=== PATIENT | female | born 1930 | race Caucasian/White ===

== ENCOUNTER 2020-01-18 03:01 | Inpatient (IN) ==
[2020-01-18 03:41] LABS: Basophils # (auto) 0.06 K/uL (0-0.2); Basophils % (auto) 0.6 %; Eosinophils # (auto) 0.51 K/uL (0-0.5); Eosinophils % (auto) 5.2 %; Hematocrit (blood only) 44.6 % (37-47); Hemoglobin 14.6 g/dL (12.0-16.0); Immature Granulocytes # (auto) 0.02 K/uL (0.00-0.02); Immature Granulocytes % (auto) 0.2 %; Lymphocytes # (auto) 2.99 K/uL (1.2-3.4); Lymphocytes % (auto) 30.4 %; Mean Corpuscular Hemoglobin 30.7 pg (25-34); Mean Corpuscular Hgb Conc 32.7 g/dL (32-36); Mean Corpuscular Volume 93.9 fL (80-100); Mean Platelet Volume 10.2 fL (7.4-10.4); Monocytes # (auto) 0.69 K/uL (0.11-0.59); Neutrophils # (auto) 5.58 K/uL (1.4-6.5); Neutrophils % (auto) 56.6 %; Platelet Count 291 K/uL (130-400); RDW Coefficient of Variation 14.1 % (11.5-14.5); RDW Standard Deviation 48.5 fL (36.4-46.3); Red Blood Count 4.75 M/uL (4.2-5.4); White Blood Count 9.85 K/uL (4.8-10.8)
[2020-01-18 03:48] LABS: Partial Thromboplastin Ratio 0.9; Partial Thromboplastin Time 24.8 Seconds (21.0-31.0); Prothrombin Time 9.9 Seconds (9.0-12.0)
[2020-01-18 03:59] LABS: BUN Creatinine Ratio 34.3 (10-20); Blood Urea Nitrogen 26 mg/dl (7-18); Calcium 9.2 mg/dl (8.5-10.1); Carbon Dioxide 29 mmol/L (21-32); Chloride 108 mmol/L (98-107); Creatinine Clr Calc Pharmacy 36.8 ml/min; Est GFR (African American) 81.2; Glucose 128 mg/dl (70-99); Magnesium 1.9 mg/dl (1.8-2.4); Potassium 4.2 mmol/L (3.5-5.1); Sodium 142 mmol/L (136-145)
[2020-01-18 04:04] LABS: Creatine Kinase 62 U/L (26-192); Troponin I < 0.015 ng/ml (0-0.045)
[2020-01-18 04:05] LABS: Appearance Urine Clear (Clear); Bilirubin Urine Negative (Negative); Blood Urine Negative (Negative); Color Urine Yellow; Glucose Urine UA Negative (Negative); Ketones Urine Negative (Negative); Leukocyte Esterase Urine Negative (Negative); Nitrite Urine Negative (Negative); Protein Urine Negative (Negative); Specific Gravity Urine 1.027 (1.000-1.030); Urobilinogen Urine Negative (Negative)
[2020-01-18] MEDS ORDERED: fentaNYL citrate 100 MCG/2 ML VIAL IV STA (04:44)
--- NOTE | 2020-01-18 06:36 | CT Scan Report ---
CT head/brain wo con CLINICAL HISTORY: fall, head injury, AMS COMPARISON STUDY: 05/11/2013 TECHNIQUE: Axial CT of the brain is performed from the vertex to the skull base. IV contrast was not administered for this examination. A dose lowering technique was utilized adhering to the principles of ALARA. CT DOSE: 729.78 mGycm FINDINGS: No intra or extra-axial mass lesions are visualized. There is no CT evidence of acute cortical infarc tion. There is no evidence of midline shift. There is no acute hemorrhage. There are patchy white matter hypodensities likely on a small vessel basis. There is no evidence of pathologic ventricular dilatation. There is opacification of the left maxillary sinus. There are fractures of the left maxillary and eth moid sinuses. There is a fracture the lateral wall left orbit. There is left periorbital soft tissue swelling. IMPRESSION: 1. Multiple left-sided facial fractures 2. No acute intracranial findings. ACT 112: Negative or not required by law. Electronically signed by: Morro Gonzalez M.D. 01/18/2020 6:35 AM
--- NOTE | 2020-01-18 06:43 | CT Scan Report ---
CT cervical spine wo con CT DOSE: 444.07 mGycm HISTORY: Trauma. Pain. fall, head injury TECHNIQUE: Multiaxial CT images of the cervical spine were performed and reformatted in the sagittal and coronal plane without the use of contrast. A dose lowering technique was utilized adhering to th e principles of ALARA. COMPARISON: None. FINDINGS: No fractures. No subluxation. Prevertebral soft tissues and the C1-C2 interval are intact. No pneumothorax. Considerable degenerative disc change. Osteopenia. IMPRESSION: No fractures within the cervical spine. Degenerative change. Osteopenia. ACT 112: Negative or not required by law. The above report was generated using voice recognition software. It may contain grammatical, syntax or spelling errors. Electronically signed by: Rashad Suarez M.D. 01/18/2020 6:41 AM
--- NOTE | 2020-01-18 06:45 | XRay Report ---
XR chest 1V portable CLINICAL HISTORY: Trauma. Change in mental status. COMPARISON STUDY: 01/07/2020 FINDINGS: The cardiac and mediastinal contours remain stable. There is no failure. There is no focal pulmonary consolidation. There are minor chronic interstitial changes of the lung bases. There is no pneumothorax.[ IMPRESSION: No active disease in the chest. ACT 112: Negative or not required by law. Electronically signed by: Morro Gonzalez M.D. 01/18/2020 6:44 AM
--- NOTE | 2020-01-18 06:46 | XRay Report ---
XR shoulder LT min 2V routine CLINICAL HISTORY: Left shoulder pain status post trauma COMPARISON: None. DISCUSSION: The bones are osteopenic. No acute fractures or dislocations are visualized. There are mi ld degenerative changes. There are subchondral cysts in the humeral head. IMPRESSION: No acute fractures or dislocations identified. ACT 112: Negative or not required by law. Electronically signed by: Morro Gonzalez M.D. 01/18/2020 6:45 AM
--- NOTE | 2020-01-18 06:49 | CT Scan Report ---
CT facial bones wo con CT DOSE: 1028.74 mGycm HISTORY: Trauma fall, head/nose injury TECHNIQUE: Multiaxial CT images of the maxillofacial region were performed and reformatted in the cor onal plane without the use of contrast. A dose lowering technique was utilized adhering to the princ iples of ANICETO. COMPARISON: None. FINDINGS: Complex fracture left maxillofacial region. Fracture lateral wall left orbit. Cortical frac ture inferior wall left orbit with inferior displacement of the left inferior orbital margin. There i s no evidence for muscular entrapment. Estimated inferior displacement is 3.5 mm at maximum. There is a fracture of the lateral as well as medial raymundo of the left maxillary sinus. There are josephine matous and/or hypertrophic changes of the left nasal turbinates. There is moderate nasal septal displ acement to the right. There is a fracture of the left lateral and left anterior nasal bone region. There is a slightly depressed fracture anterior aspect of the left maxillary sinus with a maximum pos terior displacement of 3 mm. IMPRESSION: 1. Complex fracture left facial region 2. Fractures of the anterior medial and lateral left maxillary sinus wall. 3. Inferior displacement of the fracture of the left inferior orbital margin. Nondisplaced fracture l ateral wall left orbit. 4. Fracture of the anterior left maxillary sinus wall with moderate posterior displacement of 3 mm. 5. Fracture nasal bones. ACT 112: Negative or not required by law. The above report was generated using voice recognition software. It may contain grammatical, syntax or spelling errors. Electronically signed by: Rashad Suarez M.D. 01/18/2020 6:48 AM
--- NOTE | 2020-01-18 07:29 | Emergency Department Note ---
Entered by Ronen Powell acting as a scribe for Miah Ward MD ED Provider Note Name: RAYMOND CAN Age: 89 Arrives Via: Ambulance Informant: EMS CC: Fall with left sided facial pain HPI: 89F arrives for evaluation of a constant left sided facial pain following a fall prior to arrival. EMS reports that the son heard the patient screaming but by the time he found her the blood from the fall was dried. The report the son did not know what time the patient fell. The patient is covered in dried blood. EMS states no medications prior to arrival. The HPI and ROS limited secondary to patients dementia. ROS: The HPI and ROS limited secondary to patients dementia. Past Medical History:Dementia, TIA, IBS, HTN, Hypothyroid Past Surgical History:Unknown Family History:Unknown Social History:Lives with son, no etoh, no drugs, no tobacco Home Medications:See Below Allergies:oxycodone, tramadol Vitals:Blood Pressure 145/70, Pulse 66, Resp 19, T 36.5C, O2 96% on RA Physical Exam: GENERAL: Patient is elderly and demented, in moderate distress. EYES: No scleral icterus, unremarkable pupils. ENT: Mucous membranes moist, no nasal congestion. HEAD: Much of hair and right side of face covered in dried blood. Large hematoma of the left eyebrow, with dried blood. Tenderness over left eyebrow. Right deviation of the nose with tenderness to palpation. Dried blood in each nares. NECK: No masses appreciated, nomeningismus, trachea is midline. RESPIRATORY: No dyspnea. Clear to auscultation and equal bilaterally. No wheeze, no rhonchi. CARDIOVASCULAR: Regular rate and rhythm.No murmurs, rubs, gallops appreciated. GASTROINTESTINAL: Abdomen soft, non-tender, no peritonitis.Bowel sounds positive.No masses appreciated. BACK: No midline tenderness, no CVA tenderness EXTREMITIES: Normal motion all extremities, no cyanosis, no edema. NEUROLOGIC: Alert and oriented, no acute motor or sensory deficits, no focal weakness, cranial nerves grossly intact. SKIN: No rash, no jaundice, no diaphoresis. GCS 14 ED Course: Prior Medical Record, Triage/Nursing Notes, Medications, Allergies reviewed by Me Vital Signs: reviewed and remarkable for wnl Labs:Reviewed and remarkable for no significant abnormalities Interventions: saline lock, fentanyl 25mcg IV Laceration Repair Procedure: Location: Left lateral eyebrow Total length: 2cm Complexity: simple Verbal consent was obtained after the risks and benefits were explained, including but not limited to bleeding, scarring, infection, pain, and bone/joint/nerve damage. At this time, the risks of the procedure are less than the risks of NOT performing the procedure. A time out was taken and the correct patient and site identified. The skin was prepped with betadine. Examination revealed no injury to deep structures such as tendons, bone, or significant blood vessels. Debridement was not performed. The wound edges were approximated using Dermabond. Hemostasis and excellent approximation was achieved. Detailed wound care instructions and signs and symptoms of infection reviewed with the son. No complications and the patient tolerated the procedure well. Imaging:[facility] Radiologist interpretation reviewed by me: CT head, face, cervical. Complex left orbital/maxillary fracture with left nasal fracture. Retro hematoma left orbit. Reassessments/Times: 0305: Past medical records reviewed. The patient was evaluated in room A11B. A complete history and physical exam was performed. 0430: I spoke with Dr. Ever Nina Hospitalist. He will evaluate for further management. Blood pressure:Elevated - Referred to hospitalist Disposition:Hospitalization Differentials:Differential includes acute coronary syndrome, myocardial infarction, CVA, TIA, anemia, infection, pneumonia, UTI, pyelonephritis, poor nutrition, dehydration, electrolyte disturbance,hypoglycemia. Medical Decision Makin yr old female with fall at home and likely laying on ground for an hour prior to calling out for son. Unclear why not calling though suspect LOC. Large hematome left periorbital but on exam full ROM left eye without pain appreciated and no proptosis at this time. Lac repaired over left eye brow with dermabond. Uncomfortable for which fentanyl used. After removal of cervical collar with negative ct she has no further pain/complaints. Cxr/shoulder xray unremarkable. Reviewed with OMFS and Optho who agree without other findings hospitalization here reasonable. Hospitalist in to evaluate further and we discussed they will order abx for nasal/sinus fracture. She does not have evidence acs, infection. Seems unlikely PE and without neuro deficits I do not feel this is stroke. Impression: Closed head Injury Closed Fracture of left orbit Fracture of maxillary Sinus Laceration of Eyebrow, Left Fall Ambulatory Dysfunction The scribe's documentation has been prepared under my direction and personally reviewed by me in its entirety. I confirm that the note above accurately reflects all work, treatment, procedures, and medical decision making performed by me. Miah Ward MD Impression & Plan CHI (closed head injury), Closed fracture of left orbit, Fracture of maxillary sinus, Laceration of eyebrow, left, Fall, Ambulatory dysfunction Past Med/Surg History Medical History Anxiety Xsxhxfe-Sadsq-Ndsir atrophy Dementia Depression Dermatitis Hypertension Hypothyroid Irritable bowel syndrome TIA (transient ischemic attack) several years ago Family History Other No pertinent family history in first degree relatives Social History Feels Safe at Home: Yes Smoking Status: Never smoker Results & Data Vital Signs Vital Signs - 24 hr 01/18/20 02:54 01/18/20 04:54 01/18/20 06:00 Temperature 36.9 C Temperature Source Oral Pulse Rate 75 Pulse Rate [Apical] 71 62 Respiratory Rate 18 18 18 Respiratory Effort / Characteristics Non-Labored Non-Labored Respiratory Depth Normal Normal Respiratory Pattern Regular Blood Pressure 181/108 H Blood Pressure [Right Arm] 157/109 H 122/58 L Blood Pressure Mean 132 Blood Pressure Mean [Right Arm] 125 79 Blood Pressure Position Lying Blood Pressure Position [Right Arm] Lying Pulse Oximetry 98 97 94 Oxygen Delivery Method Room Air Room Air Room Air Sepsis Recent Fever Within 48 Hours No Sepsis New/Unexplained Change in Mental Status No Sepsis Action Taken by Nursing No Action Required Home Medications Current Medication List: was personally reviewed by me Laboratory Data Attestation: I reviewed the patient's lab results. Result diagrams: 01/18/20 02:41 01/18/20 02:41 Lab Results 01/18/20 01/18/20 01/18/20 Range/Units 02:41 02:41 02:41 WBC 9.85 (4.8-10.8) K/uL RBC 4.75 (4.2-5.4) M/uL Hgb 14.6 (12.0-16.0) g/dL Hct 44.6 (37-47) % MCV 93.9 (80-100) fL MCH 30.7 (25-34) pg MCHC 32.7 (32-36) g/dL RDW Std Deviation 48.5 H (36.4-46.3) fL RDW Coeff of Gerardo 14.1 (11.5-14.5) % Plt Count 291 (130-400) K/uL MPV 10.2 (7.4-10.4) fL Immature Gran % (Auto) 0.2 % Neut % (Auto) 56.6 % Lymph % (Auto) 30.4 % [place]ardo % (Auto) 7.0 % Eos % (Auto) 5.2 % Baso % (Auto) 0.6 % Immature Gran # (Auto) 0.02 (0.00-0.02) K/uL Neut # (Auto) 5.58 (1.4-6.5) K/uL Lymph # (Auto) 2.99 (1.2-3.4) K/uL Fajardo # (Auto) 0.69 H (0.11-0.59) K/uL Eos # (Auto) 0.51 H (0-0.5) K/uL Baso # (Auto) 0.06 (0-0.2) K/uL PT 9.9 (9.0-12.0) Seconds INR 1.0 (0.9-1.1) APTT 24.8 (21.0-31.0) Seconds PTT Ratio 0.9 Sodium 142 (136-145) mmol/L Potassium 4.2 (3.5-5.1) mmol/L Chloride 108 H (98-107) mmol/L Carbon Dioxide 29 (21-32) mmol/L Anion Gap 5.0 (3-11) BUN 26 H (7-18) mg/dl Creatinine 0.76 (0.6-1.2) mg/dl Est Cr Clr Drug Dosing 36.8 ml/min Est GFR ( Amer) 81.2 Est GFR (Non-Af Amer) 70.0 BUN/Creatinine Ratio 34.3 H (10-20) Glucose 128 H (70-99) mg/dl Calcium 9.2 (8.5-10.1) mg/dl Magnesium 1.9 (1.8-2.4) mg/dl Total Creatine Kinase 62 (26-192) U/L Troponin I < 0.015 (0-0.045) ng/ml Urine Color Urine Appearance (Clear) Urine pH (4.5-7.5) Ur Specific [place] (1.000-1.030) Urine Protein (Negative) Urine Glucose (UA) (Negative) Urine Ketones (Negative) Urine Blood (Negative) Urine Nitrite (Negative) Urine Bilirubin (Negative) Urine Urobilinogen (Negative) Ur Leukocyte Esterase (Negative) 01/18/20 Range/Units 03:23 WBC (4.8-10.8) K/uL RBC (4.2-5.4) M/uL Hgb (12.0-16.0) g/dL Hct (37-47) % MCV (80-100) fL MCH (25-34) pg MCHC (32-36) g/dL RDW Std Deviation (36.4-46.3) fL RDW Coeff of Gerardo (11.5-14.5) % Plt Count (130-400) K/uL MPV (7.4-10.4) fL Immature Gran % (Auto) % Neut % (Auto) % Lymph % (Auto) % [place] % (Auto) % Eos % (Auto) % Baso % (Auto) % Immature Gran # (Auto) (0.00-0.02) K/uL Neut # (Auto) (1.4-6.5) K/uL Lymph # (Auto) (1.2-3.4) K/uL [place] # (Auto) (0.11-0.59) K/uL Eos # (Auto) (0-0.5) K/uL Baso # (Auto) (0-0.2) K/uL PT (9.0-12.0) Seconds INR (0.9-1.1) APTT (21.0-31.0) Seconds PTT Ratio Sodium (136-145) mmol/L Potassium (3.5-5.1) mmol/L Chloride (98-107) mmol/L Carbon Dioxide (21-32) mmol/L Anion Gap (3-11) BUN (7-18) mg/dl Creatinine (0.6-1.2) mg/dl Est Cr Clr Drug Dosing ml/min Est GFR ( Amer) Est GFR (Non-Af Amer) BUN/Creatinine Ratio (10-20) Glucose (70-99) mg/dl Calcium (8.5-10.1) mg/dl Magnesium (1.8-2.4) mg/dl Total Creatine Kinase (26-192) U/L Troponin I (0-0.045) ng/ml Urine Color Yellow Urine Appearance Clear (Clear) Urine pH 5.0 (4.5-7.5) Ur Specific [place] 1.027 (1.000-1.030) Urine Protein Negative (Negative) Urine Glucose (UA) Negative (Negative) Urine Ketones Negative (Negative) Urine Blood Negative (Negative) Urine Nitrite Negative (Negative) Urine Bilirubin Negative (Negative) Urine Urobilinogen Negative (Negative) Ur Leukocyte Esterase Negative (Negative) Administered Medications Discontinued Medications Fentanyl Citrate (Fentanyl Citrate) 25 mcg IV NOW STA Stop: 01/18/20 04:45 Last Admin: 01/18/20 04:49 Dose: 25 mcg Documented by: [id number] Blood Pressure Blood Pressure Findings: Elevated blood pressure Blood Pressure Disposition: further management by hospitalist Discharge Plan Visit Data *Final* Discharge Date/Time: 01/18/20 07:04 Chief Complaint: Fall Stated Complaint: Fall; head injury ED Provider: Miah Ward Discharge Problem: CHI (closed head injury), Closed fracture of left orbit, Fracture of maxillary sinus, Laceration of eyebrow, left, Fall, Ambulatory dysfunction Patient Disposition: Admitted As Inpatient Discharge Instructions Interventions: ED Discharge Assessment Last Done: 01/18/20 07:04 Discharge Problem: CHI (closed head injury) Qualifiers: Encounter type: initial encounter Qualified Code(s): S09.90XA - Unspecified injury of head, initial encounter Closed fracture of left orbit Qualifiers: Encounter type: initial encounter Qualified Code(s): S02.85XA - Fracture of orbit, unspecified, initial encounter for closed fracture Fracture of maxillary sinus Qualifiers: Encounter type: initial encounter Fracture type: closed Qualified Code(s): S02.401A - Maxillary fracture, unspecified side, initial encounter for closed fracture Laceration of eyebrow, left Qualifiers: Encounter type: initial encounter Qualified Code(s): S01.112A - Laceration without foreign body of left eyelid and periocular area, initial encounter Fall Qualifiers: Encounter type: initial encounter Qualified Code(s): W19.XXXA - Unspecified fall, initial encounter The scribe's documentation has been prepared under my direction and personally reviewed by me in its entirety. I confirm that the note above accurately reflects all work, treatment, procedures, and medical decision making performed by me.
[2020-01-18] MEDS ORDERED: PIPERACILL/TAZOBAC CONSULT ACTIVE PRN (07:55)
[2020-01-18] MEDS ORDERED: NITROGLYCERIN SL 0.4 MG/TAB TAB SL PRN (07:55)
[2020-01-18] MEDS ORDERED: ONDANSETRON INJ 2 MG/ML 2 ML VIAL IV PRN (07:55)
[2020-01-18] MEDS ORDERED: POLYETHYLENE (MIRALAX) 17 GM PACK PO PRN (07:55)
--- NOTE | 2020-01-18 07:55 | History and Physical Report ---
DATE OF ADMISSION: 01/18/2020 CHIEF COMPLAINT: Status post fall. HISTORY OF PRESENT ILLNESS: This is 89-year-old female with past medical history significant for hyperlipidemia, hypothyroidism, impaired fasting glucose, hypertension, irritable bowel syndrome, degeneration of cervical and lumbosacral disk osteoporosis, coronary artery disease, history of seizures, migraine, history of uterine cancer, generalized anxiety disorder, insomnia, who is wheelchair bound, can transfer herself to the wheelchair, has mild dementia, lives with her son, fell around 2 a.m. As per the son, patient is supposed to use a wheelchair, patient gets confused whenever she gets up in the night and seemed didn't used her wheel chair. She fell down close to the bathroom and he called 911. This patient was brought in here. Currently, patient received fentanyl and she is drowsy, not able to give much history from the patient. Imaging studies showed CT head multiple left sided facial fractures. No acute intracranial findings and Facial CT preliminary report shows acute mildly displaced fracture of the anterior and posterior raymundo of the left maxillary sinus with blood filling the left maxillary sinus. Acute nondisplaced fracture seen on the left nasal bone, left preseptal periorbital hematoma extending to the left supraorbital and left frontal scalp regions. Currently, the patient is drowsy and hemodynamically stable, but when asked denies any chest pain, denies any abdominal pain, denies any nausea. She has pain in the left eye region and she is very drowsy and does not answer other questions. As per the son, the patient was apparently doing okay until this happened. No recent fever or chills. No cough. Eating okay. She is on regular diet. She recently on 01/07/2020 she was in the ER for food stuck in the esophagus. She was status post EGD at that time and at the time of the EGD it showed the food had already gone into the stomach and the patient was discharged on Protonix for 3 months and there is plan for repeat endoscopy in 2 months to check for healing and as EGD showed reflux esophagitis. ALLERGIES: ENVIRONMENTAL, PERCOCET, TRAMADOL. PAST MEDICAL HISTORY: As mentioned above. PAST SURGICAL HISTORY: Colonoscopy, EGDs, laparoscopic vaginal hysterectomy with removal of oviducts, cataract surgery bilaterally, tonsillectomy, adenoidectomy, repair of the vulvar lesion. MEDICATIONS: The patient is on aspirin 81 mg p.o. a.m., citalopram 20 mg p.o. at bedtime, Keppra 1250 mg a.m. and at bedtime, levothyroxine 50 mcg daily, lisinopril 5 mg a.m., Ativan 1 mg p.o. at bedtime, Toprol-XL 100 mg p.o. a.m. FAMILY HISTORY: Significant for mother who has breast cancer, of CHF and has CVA. Father had VT at age of 51. Son has heart disorder, blood clots. Daughter has DVT and another son has brain tumor. SOCIAL HISTORY: , currently lives with her son. No smoking, no alcohol, no drug use. REVIEW OF SYMPTOMS: Unobtainable from the patient at this time because the patient is very drowsy. PHYSICAL EXAMINATION: VITAL SIGNS: Temperature 36.9, pulse 62, respiratory rate 18, blood pressure 102/58, oxygen 94% on room air. HEENT: Some bruising above the left brow, could not exam the eyes as the patient has difficulty to open eyes and she has some hematoma on the left orbital region. NECK: No neck masses. Supple. CARDIOVASCULAR: S1, S2 heard, regular rate and rhythm, no murmur, no gallop. RESPIRATORY SYSTEM: Normal AP diameter. No accessory muscle use. No wheezing, no crackles. ABDOMEN: Soft, bowel sounds present. No distention. CENTRAL NERVOUS SYSTEM: Drowsy and only oriented to name, does not respond to any commands. EXTREMITIES: No edema, no erythema. LABORATORY DATA: WBC 9.8, hemoglobin 14.6, hematocrit 44.6, platelets 291. PT 10.9, INR 1, APTT 24.8. Sodium 142, potassium 4.2, chloride 108, bicarbonate 29, BUN 26, creatinine 0.7, serum glucose 128, calcium 9.2, magnesium 1.9. Troponin I less than 0.015. Urinalysis negative. Cervical spine CT, no fractures. Degenerative changes. Chest x-ray, no active disease in the chest. CT of the head, multiple left sided facial fractures. No acute intracranial hemorrhage. FINDINGS Facial CT preliminary report left maxillary acute mildly displaced fracture of the anterior and posterior raymundo of the left maxillary sinus, with blood filling in the left maxillary sinus. Acute nondisplaced fracture involving the left nasal bone, left preseptal periorbital hematoma extended to left supraorbital and left frontal scalp region. EKG: Normal sinus rhythm, rate of 74, nonspecific ST-T wave abnormality. Shoulder x-ray is pending. ASSESSMENT AND PLAN: This is an 89-year-old female who lives with her son, wheelchair bound, and transfers herself to the wheelchair, was found close to the bathroom at around 2 a.m. today at night and was not using the wheelchair and imaging studies shows left maxillary sinus fracture and also left periorbital hematoma. 1. Fall, left maxillary sinus fracture and left periorbital hematoma. ER physician talked to the ENT and also Ophthalmology and was advised for observation. Will Observe the patient in med/surg tele. IV fluids. Consult ENT and Ophthalmology. PT and OT and Social Service to help with discharge planning. Pain control. We will hold aspirin for now. 2. History of depression and anxiety. Continue citalopram and Ativan. 3. Hypothyroidism. Continue Synthroid. 4. Hypertension. Continue Toprol-XL and lisinopril. 5. Seizures. Continue Keppra. 6. History of prediabetes. We will follow the blood sugars, diabetic diet. 7. History of recent food impaction in the esophagus. She was in the ER on 01/07/2020 and EGD was done, food had already gone into the stomach, showed reflux esophagitis was started on Protonix and plan for repeat EGD in 2 months.Will consult speech therapy. 8. Deep venous thrombosis prophylaxis, sequential compression devices for now. 9. Disposition: Observe in med/surg tele. PT and OT prior to discharge. Social Service to help with discharge planning. Code status: Full code as per my discussion with the son. MTDD
[2020-01-18] MEDS ORDERED: PIPERACILLIN/TAZOBACTAM 3.375 GM in DEXTROSE 5% 100 ML IV ONE (08:15)
[2020-01-18] MEDS: SODIUM CHLORIDE 0.9% 1000ML 1,000 ML IV SCH ×2 (08:39→17:41)
--- NOTE | 2020-01-18 10:27 | Electrocardiogram Report ---
Test Reason : Blood Pressure : / mmHG Vent. Rate : 074 BPM Atrial Rate : 074 BPM P-R Int : 126 ms QRS Dur : 074 ms QT Int : 400 ms P-R-T Axes : 053 -19 059 degrees QTc Int : 444 ms Poor data quality, interpretation may be adversely affected Normal sinus rhythm Nonspecific ST and T wave abnormality Abnormal ECG When compared with ECG of 07-JAN-2020 21:23, Nonspecific T wave abnormality now evident in Inferior leads Confirmed by Harish Beltran ([id number]) on 01/18/2020 10:26:36 AM Referred By: REFERRED SELF Confirmed By:Dex Beltran
[2020-01-18] MEDS: lisinopriL 5 MG TAB PO SCH (10:45)
[2020-01-18] MEDS: levETIRAcetam 250 MG TAB PO SCH ×2 (10:45→19:26)
[2020-01-18] MEDS: PANTOprazole 40 MG TAB PO SCH (10:46)
[2020-01-18] MEDS: METOPROLOL SUCC 50MG EXT REL TAB PO SCH (10:46)
[2020-01-18] MEDS: LEVOTHYROXINE SODIUM 50 MCG TABLET PO SCH (10:47)
[2020-01-18] MEDS: ACETAMINOPHEN 325 MG TAB PO PRN (12:48)
--- NOTE | 2020-01-18 12:55 | Hospitalist Progress Note ---
Date of Service January 18, 2020 and January 19, 2020 Assessment & Plan (1) Closed fracture of left orbit: Status post mechanical fall CT of the face did not show inferior displacement of the fracture of the left inferior orbital margin and nondisplaced fracture lateral wall of left orbit Has periorbital ecchymosis and laceration over left upper area No visual abnormality, no subconjunctival hemorrhage Eye movement is minimally painful This was discussed with the training manager and was advised that there is no imminent requirement for any ophthalmologic evaluation Periorbital bruising is much better and there is no visual impairment on examination If there is any problem she will need to see an training manager down the line (2) Fracture of maxillary sinus: Fracture of the neck left maxillary and associated nasal bones noted following the fall Has significant pain there and swelling Orofacial surgery has been consulted and awaiting evaluation Appreciate orofacial surgery input and recommendation Conservative management (3) Fall: Likely mechanical secondary to ambulatory dysfunction We will get PT and OT evaluation-PT OT recommended rehab Awaiting placement (4) Laceration of eyebrow, left: As above Has been getting better (5) Ambulatory dysfunction: Multifactorial osteoarthritis, deteriorating general health and is complicated by dementia PT and OT evaluation before discharge As before (6) Hypertension: Remains controlled Continue current medications (7) Hypothyroid: Continue supplement (8) Depression: (9) Dementia: No acute delirium DVT prophylaxis SCD CODE STATUS Full Discussed with the son in detail Likely be transferred tomorrow if accepted to [facility] Admission and Anticipated Discharge Date Admission Date: January 18, 2020 Anticipated date of discharge: 01/20/20 Subjective 01/18/2020 The patient was seen and examined in the telemetry unit She is 89-year-old female with significant past medical history as mentioned in H&P was admitted yesterday following a mechanical fall with injury to the face She complains of pain around the left eye and left face Denies any other significant symptoms Denies any chest pain, palpitation, shortness of breath, abdominal pain, nausea and or vomiting Denies any numbness and/or tingling involving any of the extremities 01/19/2020 Pleasantly confused but denies any other symptoms Pain in the face and for it are controlled No shortness of breath, no abdominal pain nausea and or vomiting Has been getting physical therapy and recommended for rehab Review of Systems Review of Systems: All systems reviewed and are unremarkable except as noted below Eyes: Has left periorbital bruising with skin laceration involving the upper left corner. Does not have any abnormalities in vision and eye movement Physical Exam Physical Exam: Lying in bed with some discomfort secondary to pain in the left eye and face Constitutional: + acute distress, + ill appearing and + thin Eyes: + eyelid abnormality (Periorbital bruising with left upper eye skin laceration) Periorbital ecchymosis/bruising and swelling have been getting better ENMT: external ear and nose normal, oropharynx normal Swelling and minimal tenderness noted over left maxillary bone area Respiratory: no respiratory distress Auscultation: + diminished lung sounds and + crackles (Minimal crackles at the bases) Cardiovascular: Rate/Rhythm: regular rate and regular rhythm Gastrointestinal (Abdomen): Inspection/Auscultation: abdomen normal to inspection and normal bowel sounds Musculoskeletal: No acute arthritis Neurologic: Alert, awake, pleasantly confused. Generally weak. Grossly no focal neuro deficit Psychiatric: No acute confusion Results & Data ([facility]) Vital Signs (Past 12 Hours) Vital Signs Temp Pulse Pulse Pulse Resp BP BP 01/18/20 11:40 36.4 C L 65 19 124/63 01/18/20 07:55 71 01/18/20 07:17 36.5 C 66 19 145/70 H 01/18/20 07:12 36.5 C 66 16 145/70 H 01/18/20 07:04 94 H 18 118/54 L 01/18/20 06:00 62 18 122/58 L 01/18/20 04:54 71 18 157/109 H 01/18/20 02:54 36.9 C 75 18 181/108 H Pulse Ox 01/18/20 11:40 97 01/18/20 07:55 01/18/20 07:17 96 01/18/20 07:12 96 01/18/20 07:04 95 01/18/20 06:00 94 01/18/20 04:54 97 01/18/20 02:54 98 Laboratory Results Short CBC 01/18/20 Range/Units 02:41 WBC 9.85 (4.8-10.8) K/uL Hgb 14.6 (12.0-16.0) g/dL Hct 44.6 (37-47) % Plt Count 291 (130-400) K/uL BMP 01/18/20 02:41 Sodium 142 Potassium 4.2 Chloride 108 H Carbon Dioxide 29 BUN 26 H Creatinine 0.76 Glucose 128 H Calcium 9.2 Cardiac Enzymes 01/18/20 Range/Units 02:41 Total Creatine Kinase 62 (26-192) U/L Troponin I < 0.015 (0-0.045) ng/ml Urine 01/18/20 Range/Units 03:23 Urine Color Yellow Urine Appearance Clear (Clear) Urine pH 5.0 (4.5-7.5) Ur Specific [place] 1.027 (1.000-1.030) Urine Protein Negative (Negative) Urine Glucose (UA) Negative (Negative) Medications Administered Current Inpatient Medications Acetaminophen (Tylenol) 650 mg PO Q4H PRN PRN Reason: Pain or Fever Stop: 02/17/20 07:54 Citalopram Hydrobromide (Celexa) 20 mg PO [facility] Stop: 02/17/20 20:59 Sodium Chloride (Nss 1000ml) 1,000 mls @ 125 mls/hr IV .Q8H [facility] Stop: 02/17/20 07:54 Last Admin: 01/18/20 08:39 Dose: 125 mls/hr Documented by: Piperacillin Sod/Tazobactam (Sod 3.375 gm/ Dextrose) 115 mls @ 28.75 mls/hr IV Q8H [facility]; Protocol Stop: 01/28/20 12:59 [facility] ([facility]) [facility] Stop: 02/17/20 08:59 Last Admin: 01/18/20 10:45 Dose: 250 mg Documented by: Levothyroxine Sodium (Synthroid) 50 mcg PO DAILYBB [facility] Stop: 02/17/20 08:59 Last Admin: 01/18/20 10:47 Dose: 50 mcg Documented by: Lisinopril (Zestril) [facility] Stop: 02/17/20 08:59 Last Admin: 01/18/20 10:45 Dose: 5 mg Documented by: Lorazepam (Ativan) 1 mg PO [facility] Stop: 02/17/20 20:59 Metoprolol Succinate (Toprol Xl) 100 [facility] Stop: 02/17/20 08:59 Last Admin: 01/18/20 10:46 Dose: 100 mg Documented by: Miscellaneous Information (Consult) 1 ea N/A UD PRN PRN Reason: Consult Stop: 02/17/20 07:54 Morphine Sulfate (Morphine Sulfate) 2 mg IV Q4H PRN PRN Reason: Pain Stop: 02/01/20 07:54 Nitroglycerin (Nitrostat) 0.4 mg SL UD PRN PRN Reason: Chest Pain Stop: 02/17/20 07:54 Ondansetron HCl (Zofran) 4 mg IV Q6H PRN PRN Reason: Nausea Stop: 02/17/20 07:54 Pantoprazole Sodium (Protonix) 40 mg PO DAILY [facility] Stop: 02/17/20 08:59 Last Admin: 01/18/20 10:46 Dose: 40 mg Documented by: Polyethylene Glycol (Miralax Powder Packet) 17 gm PO DAILY PRN PRN Reason: Constipation Stop: 02/17/20 07:54 (1) Fracture of maxillary sinus Encounter type: initial encounter Fracture type: closed Qualified Code(s): S02.401A - Maxillary fracture, unspecified side, initial encounter for closed fracture (2) Fall Encounter type: initial encounter Qualified Code(s): W19.XXXA - Unspecified fall, initial encounter (3) Closed fracture of left orbit Encounter type: initial encounter Qualified Code(s): S02.85XA - Fracture of orbit, unspecified, initial encounter for closed fracture (4) Laceration of eyebrow, left Encounter type: initial encounter Qualified Code(s): S01.112A - Laceration without foreign body of left eyelid and periocular area, initial encounter
[2020-01-18] MEDS ORDERED: PIPERACILLIN/TAZOBACTAM 3.375 GM in DEXTROSE 5% 100 ML IV SCH (14:00)
[2020-01-18] MEDS: AMOXICILLIN/CLAVULANATE 500 MG TAB PO SCH (15:40)
--- NOTE | 2020-01-18 17:04 | Surgery Consultation ---
Date of Consultation Jan 18 2020 Facial Oral Exam Present Complaint: fall this AM injuries to left face and nose A detailed Facial/oral exam was completed. Soft tissue--- swelling left eye/ nose and left side of the face secondary to a recent fall. Oral Care---Overall oral care is good, fx upper anterior tooth ( looks to be an old fracture) missing teeth, atrophic upper and lower ridge. The soft tissue of the tongue, floor of mouth, gingival, palate (hard/soft) all WNL Neck is supple, no masses, no abnormalities. CT scan-----I reviewed the CT and agree with the findings==all the fractures are of no clinical significance, The sinus fx, orbital floor, nasal do not need repair. The left eye is still swollen and Mrs Rodriguez is able to move it but due to the swelling/pain a complete exam is not possible at this time--I would suggest the the opthalmologist evaluate this further. I see no evidence clinically of a retro bulbar bleed. Sinus fx are insignificant Some swelling of the nose is noted and the slight nasal fracture that will NOT require reduction. No nasal bleeding. Orbital floor fx w/o radiologic evidence of entrapment--difficult to evaluate her eye movement or question her about ROM, double vision, numbness or other symptoms. Plan: No treatment from an oral/facial point of view. The slightly displaced fractures will heal w/o any treatment and will not have any clinical repercussions. From my point of view comfort care is all that I suggest at this time No follow up up needed Should have eye consult Avoid nose blowing Discharge when medically able. History of Present Illness Attending Physician: Eber Tracy MD Allergies Allergy/AdvReac Type Severity Reaction Status Date / Time oxycodone Allergy Mild RED Verified 01/18/20 05:25 FLUSHED FACE tramadol AdvReac Mild GI UPSET Verified 01/18/20 05:25 Home Medications Home Medications Medication Instructions Recorded Confirmed Type aspirin 81 mg PO QAM 01/18/20 01/18/20 History citalopram 20 mg PO HS 01/18/20 01/18/20 History levetiracetam 250 mg PO [facility] 01/18/20 01/18/20 History levothyroxine 50 mcg PO QAM 01/18/20 01/18/20 History lisinopril 5 mg PO QAM 01/18/20 01/18/20 History lorazepam 1 mg PO HS 01/18/20 01/18/20 History metoprolol succinate 100 mg PO QAM 01/18/20 01/18/20 History Patient History Medical History Anxiety Idhufkg-Ubwfo-Pzckd atrophy Dementia Depression Dermatitis Hypertension Hypothyroid Irritable bowel syndrome TIA (transient ischemic attack) several years ago Family History Other No pertinent family history in first degree relatives Social History Preferred Language: Yoruba Communication Ability: Effective Library Technical Assistant Required: No Beliefs That Will Affect Care: None Current Living Situation: Family Current Living Situation Comment: lives with her son Samir Other Information That Helps Us Care for You: No Feels Safe at Home: Yes Safety Concerns: Feels Safe At This Time Smoking Status: Never smoker Do You Dip or Chew Tobacco: No ; Second Hand Exposure: No ; Tobacco Cessation Education Requested by Patient: No Hx Alcohol Use: No Hx Substance Use: No Results & Data Vital Signs (Past 12 Hours) Vital Signs Temp Pulse Pulse Pulse Resp BP BP 01/18/20 16:02 36.8 C 66 18 132/69 01/18/20 11:40 36.4 C L 65 19 124/63 01/18/20 07:55 71 01/18/20 07:17 36.5 C 66 19 145/70 H 01/18/20 07:12 36.5 C 66 16 145/70 H 01/18/20 07:04 94 H 18 118/54 L 01/18/20 06:00 62 18 122/58 L 01/18/20 04:54 71 18 157/109 H Pulse Ox 01/18/20 16:02 96 01/18/20 11:40 97 01/18/20 07:55 01/18/20 07:17 96 01/18/20 07:12 96 01/18/20 07:04 95 01/18/20 06:00 94 01/18/20 04:54 97 PG Care Time/CCT Total # of Minutes Spent Total Time Spent with Patient: Total time spent is greater than 50% in coordination of care (as documented) at patient's floor/unit and/or counseling patient: Coding Level of Care Code 29772 Initial Inpt Care Lvl 3
[2020-01-18] MEDS: CITALOPRAM 20 MG TAB PO SCH (19:27)
[2020-01-18] MEDS ORDERED: LORazepam 1 MG TAB ONE (19:29)
[2020-01-18] MEDS ORDERED: LORazepam 1 MG TAB PO SCH (21:00)
[2020-01-19] MEDS: SODIUM CHLORIDE 0.9% 1000ML 1,000 ML IV SCH ×3 (02:32→18:26)
[2020-01-19] MEDS: ACETAMINOPHEN 325 MG TAB PO PRN (02:34)
[2020-01-19 05:47] LABS: Basophils # (auto) 0.04 K/uL (0-0.2); Basophils % (auto) 0.3 %; Eosinophils # (auto) 0.05 K/uL (0-0.5); Eosinophils % (auto) 0.4 %; Hematocrit (blood only) 36.2 % (37-47); Immature Granulocytes # (auto) 0.03 K/uL (0.00-0.02); Immature Granulocytes % (auto) 0.2 %; Lymphocytes # (auto) 1.65 K/uL (1.2-3.4); Lymphocytes % (auto) 12.8 %; Mean Corpuscular Hemoglobin 30.6 pg (25-34); Mean Corpuscular Hgb Conc 33.1 g/dL (32-36); Mean Corpuscular Volume 92.3 fL (80-100); Mean Platelet Volume 9.6 fL (7.4-10.4); Monocytes # (auto) 0.74 K/uL (0.11-0.59); Monocytes % (auto) 5.7 %; Neutrophils % (auto) 80.6 %; Platelet Count 248 K/uL (130-400); RDW Coefficient of Variation 14.1 % (11.5-14.5); RDW Standard Deviation 47.6 fL (36.4-46.3); Red Blood Count 3.92 M/uL (4.2-5.4); White Blood Count 12.91 K/uL (4.8-10.8)
[2020-01-19 06:09] LABS: Estimated Average Glucose 123 mg/dl; Hemoglobin A1C 5.9 % (4.5-5.6)
[2020-01-19 06:25] LABS: BUN Creatinine Ratio 22.4 (10-20); Blood Urea Nitrogen 15 mg/dl (7-18); Calcium 8.2 mg/dl (8.5-10.1); Carbon Dioxide 27 mmol/L (21-32); Chloride 111 mmol/L (98-107); Est GFR (African American) 90.5; Est GFR (Non-African American) 78.1; Glucose 124 mg/dl (70-99); Sodium 141 mmol/L (136-145)
[2020-01-19] MEDS: LEVOTHYROXINE SODIUM 50 MCG TABLET PO SCH (06:25)
[2020-01-19] MEDS: lisinopriL 5 MG TAB PO SCH (07:59)
[2020-01-19] MEDS: levETIRAcetam 250 MG TAB PO SCH ×2 (07:59→21:11)
[2020-01-19] MEDS: AMOXICILLIN/CLAVULANATE 500 MG TAB PO SCH ×3 (07:59→18:36)
[2020-01-19] MEDS: METOPROLOL SUCC 50MG EXT REL TAB PO SCH (07:59)
[2020-01-19] MEDS: PANTOprazole 40 MG TAB PO SCH (07:59)
[2020-01-19] MEDS: MoRPHine SULFATE 2 MG/ML CARP IV PRN (12:45)
[2020-01-19] MEDS: LORazepam 1 MG TAB PO SCH ×2 (12:51→21:12)
[2020-01-19] MEDS: CITALOPRAM 20 MG TAB PO SCH (21:11)
[2020-01-20] MEDS: SODIUM CHLORIDE 0.9% 1000ML 1,000 ML IV SCH ×3 (02:27→17:43)
[2020-01-20] MEDS ORDERED: HydrALAZINE HCL 20 MG/ML VIAL IV ONE (04:37)
[2020-01-20] MEDS: LEVOTHYROXINE SODIUM 50 MCG TABLET PO SCH (05:33)
[2020-01-20] MEDS: MoRPHine SULFATE 2 MG/ML CARP IV PRN (06:28)
[2020-01-20 06:35] LABS: Basophils # (auto) 0.02 K/uL (0-0.2); Basophils % (auto) 0.2 %; Eosinophils # (auto) 0.09 K/uL (0-0.5); Eosinophils % (auto) 0.7 %; Hematocrit (blood only) 37.5 % (37-47); Hemoglobin 12.4 g/dL (12.0-16.0); Immature Granulocytes # (auto) 0.07 K/uL (0.00-0.02); Immature Granulocytes % (auto) 0.6 %; Lymphocytes # (auto) 2.18 K/uL (1.2-3.4); Lymphocytes % (auto) 17.4 %; Mean Corpuscular Hemoglobin 30.2 pg (25-34); Mean Corpuscular Hgb Conc 33.1 g/dL (32-36); Mean Corpuscular Volume 91.2 fL (80-100); Monocytes # (auto) 0.86 K/uL (0.11-0.59); Monocytes % (auto) 6.9 %; Neutrophils # (auto) 9.33 K/uL (1.4-6.5); Neutrophils % (auto) 74.2 %; Platelet Count 251 K/uL (130-400); RDW Coefficient of Variation 14.2 % (11.5-14.5); RDW Standard Deviation 46.8 fL (36.4-46.3); Red Blood Count 4.11 M/uL (4.2-5.4); White Blood Count 12.55 K/uL (4.8-10.8)
[2020-01-20 07:06] LABS: BUN Creatinine Ratio 17.1 (10-20); Calcium 8.9 mg/dl (8.5-10.1); Creatinine Clr Calc Pharmacy 49.1 ml/min; Est GFR (African American) 91.9; Est GFR (Non-African American) 79.3; Magnesium 1.7 mg/dl (1.8-2.4); Potassium 3.4 mmol/L (3.5-5.1)
--- NOTE | 2020-01-20 07:06 | CT Scan Report ---
CT head/brain wo con CLINICAL HISTORY: 89 years-old Female with AMS. Acutely altered mental status TECHNIQUE: Multiple axial CT images of the head were obtained without contrast. A dose lowering tech nique was utilized adhering to the principles of ALARA. CT DOSE: 844.62 mGy.cm COMPARISON: Head CT and CT maxillofacial 01/18/2020 FINDINGS: Motion degraded exam. Age-related involutional changes. Mild white matter hypodensities suggest chron ic microvascular ischemic disease. Cerebral vascular calcifications also noted. Ill-defined hypodensi ty of the left pontine region is favored be artifactual. No acute intracranial hemorrhage, midline sh ift, intracranial mass, hydrocephalus, territorial ischemia or abnormal extra-axial collection. The calvarium is intact. Multiple acute left-sided facial bone fractures are better characterized on CT maxillofacial from day prior. Mastoid air cells are clear. Completely opacified left maxillary sinus with maxillary wall fractures. Mild mucosal thickening of t he left ethmoid air cells. Left forehead, periorbital and cheek soft tissue swelling. Prior bilateral lens replacement. IMPRESSION: 1. Motion degraded exam without acute intracranial abnormality. 2. Multiple acute left-sided facial bone fractures with associated soft tissue swelling redemonstrate d. ACT 112: Negative or not required by law. The above report was generated using voice recognition software. It may contain grammatical, syntax o r spelling errors. Electronically signed by: Alexys Holland M.D. 01/20/2020 7:05 AM
[2020-01-20] MEDS ORDERED: MAGNESIUM SULFATE / D5W 1 GM/100 ML BAG IV ONE (08:22)
[2020-01-20] MEDS ORDERED: POTASSIUM CHLORIDE 20 MEQ TABCR PO STA (08:23)
[2020-01-20] MEDS: PANTOprazole 40 MG TAB PO SCH (08:39)
[2020-01-20] MEDS: lisinopriL 5 MG TAB PO SCH (08:39)
[2020-01-20] MEDS: levETIRAcetam 250 MG TAB PO SCH ×2 (08:39→19:41)
[2020-01-20] MEDS: METOPROLOL SUCC 50MG EXT REL TAB PO SCH (08:39)
[2020-01-20] MEDS: AMOXICILLIN/CLAVULANATE 500 MG TAB PO SCH ×3 (08:40→16:53)
[2020-01-20] MEDS: LORazepam 1 MG TAB PO SCH ×2 (08:45→19:41)
--- NOTE | 2020-01-20 11:23 | Hospitalist Progress Note ---
Date of Service January 20, 2020 Assessment & Plan (1) Closed fracture of left orbit: Status post mechanical fall CT of the face did not show inferior displacement of the fracture of the left inferior orbital margin and nondisplaced fracture lateral wall of left orbit Has periorbital ecchymosis and laceration over left upper area No visual abnormality, no subconjunctival hemorrhage Eye movement is minimally painful This was discussed with the collaborative teacher and Dr. Tracy (prior hospitalist) and was advised that there is no imminent requirement for any ophthalmologic evaluation Periorbital bruising is much better and there is no visual impairment on examination If there is any problem she will need to see an collaborative teacher down the line (2) Fracture of maxillary sinus: Fracture of the neck left maxillary and associated nasal bones noted following the fall Has significant pain there and swelling Orofacial surgery has been consulted - no surg. intervention planned Appreciate orofacial surgery input and recommendation - no surg. intervention planned Conservative management (3) Fall: Likely mechanical secondary to ambulatory dysfunction We will get PT and OT evaluation-PT OT recommended rehab Awaiting placement (4) Laceration of eyebrow, left: As above Has been getting better (5) Ambulatory dysfunction: Multifactorial osteoarthritis, deteriorating general health and is complicated by dementia PT and OT evaluation before discharge As before (6) Hypertension: BP noted to be elevated (regan. last night) - possibly d/t pain - Continue current medications, lisinopril and metoprolol succinate - pt has been on IV fluid, will put on hold now, she reportedly has ok PO intake - will cont. to monitor - pain control Elevated troponin - very mildly elevated trop. noted likely secondary to above (hypertension) in the setting of urinary retention, recent fall - pt denies any chest pain, not likely ACS - echo ordered - EF 60-65%, LV normal in size, no LV wall motion abnormality, mild conc. LVH, trace MR, trace TR, mild AR, RV syst. pressure mod. elevated at 40-50 (7) Hypothyroid: Continue supplement (8) Depression: (9) Dementia: No acute delirium DVT prophylaxis SCD CODE STATUS Full Discussed with the son in detail Likely be transferred tomorrow if accepted to [facility] Admission and Anticipated Discharge Date Admission Date: January 20, 2020 Anticipated date of discharge: 01/20/20 Subjective Per prior hospitalist 01/18/2020 The pat She is 89-year-old female admitted yesterday following a mechanical fall with injury to the face She complains of pain around the left eye and left face Denies any other significant symptoms Denies any chest pain, palpitation, shortness of breath, abdominal pain, nausea and or vomiting Denies any numbness and/or tingling involving any of the extremities 01/19/2020 Pleasantly confused but denies any other symptoms Pain in the face and for it are controlled No shortness of breath, no abdominal pain nausea and or vomiting Has been getting physical therapy and recommended for rehab 01/20 Overnight pt had urinary retention and was confused, teaching pastor was notified CT head obtained - negative s/p straight cath - complained of pain and received morphine pt bradycardic, ? chest pain - EKG and trop ordered, trop minimally elevated On my exam this AM, pt denies any pain, pt is somnolent but arousable. Denied any pain to nursing staff as well. No shortness of breath, pt comfortable. Review of Systems Review of Systems: All systems reviewed & are unremarkable except as noted in HPI & below All systems reviewed and are unremarkable except as noted below Constitutional: no fever and no chills Eyes: Has left periorbital bruising with skin laceration involving the upper left corner. Does not have any abnormalities in vision and eye movement Respiratory: no cough and no dyspnea Cardiovascular: no chest pain and no palpitations Gastrointestinal: no abdominal pain, no nausea and no vomiting Genitourinary: + urinary incontinence + urinary retention Physical Exam Physical Exam: Physical Exam: Elderly female lying in bed in NAD, somnolent Constitutional: + ill appearing and + thin Eyes: + eyelid abnormality (Periorbital bruising with left upper eye skin laceration) Periorbital ecchymosis/bruising and swelling have been getting better ENMT: external ear and nose normal, oropharynx normal Swelling and minimal tenderness noted over left maxillary bone area Respiratory: no respiratory distress Auscultation: + diminished lung sounds and + crackles (Minimal crackles at the bases) Cardiovascular: Rate/Rhythm: regular rate and regular rhythm Gastrointestinal (Abdomen): Inspection/Auscultation: abdomen normal to inspection and normal bowel sounds Musculoskeletal: No acute arthritis, moves extremities spontaneously Neurologic: Somnolent but arousable Generally weak. Grossly no focal neuro deficit Results & Data ([facility]) Vital Signs (Past 12 Hours) Vital Signs Temp Pulse Pulse Resp BP Pulse Ox 01/20/20 07:37 80 01/20/20 07:22 36.8 C 62 20 154/75 H 97 01/20/20 05:32 45 L 162/60 H 01/20/20 04:33 36.6 C 60 17 181/67 H 99 01/20/20 00:00 36.4 C L 46 L 66 19 164/66 H 96 Laboratory Results 01/20/20 01/20/20 01/20/20 Range/Units 10:40 07:34 06:23 WBC (4.8-10.8) K/uL RBC (4.2-5.4) M/uL Hgb (12.0-16.0) g/dL Hct (37-47) % MCV (80-100) fL MCH (25-34) pg MCHC (32-36) g/dL RDW Std Deviation (36.4-46.3) fL RDW Coeff of Gerardo (11.5-14.5) % Plt Count (130-400) K/uL MPV (7.4-10.4) fL Immature Gran % (Auto) % Neut % (Auto) % Lymph % (Auto) % [place] % (Auto) % Eos % (Auto) % Baso % (Auto) % Immature Gran # (Auto) (0.00-0.02) K/uL Neut # (Auto) (1.4-6.5) K/uL Lymph # (Auto) (1.2-3.4) K/uL [place] # (Auto) (0.11-0.59) K/uL Eos # (Auto) (0-0.5) K/uL Baso # (Auto) (0-0.2) K/uL Sodium (136-145) mmol/L Potassium (3.5-5.1) mmol/L Chloride (98-107) mmol/L Carbon Dioxide (21-32) mmol/L Anion Gap (3-11) BUN (7-18) mg/dl Creatinine (0.6-1.2) mg/dl Est Cr Clr Drug Dosing ml/min Est GFR ( Amer) Est GFR (Non-Af Amer) BUN/Creatinine Ratio (10-20) Glucose (70-99) mg/dl POC Glucose 136 H 119 H (70-99) mg/dl Calcium (8.5-10.1) mg/dl Magnesium (1.8-2.4) mg/dl Troponin I 0.044 (0-0.045) ng/ml 01/20/20 01/20/20 01/19/20 Range/Units 06:23 06:23 20:25 WBC 12.55 H (4.8-10.8) K/uL RBC 4.11 L (4.2-5.4) M/uL Hgb 12.4 (12.0-16.0) g/dL Hct 37.5 (37-47) % MCV 91.2 (80-100) fL MCH 30.2 (25-34) pg MCHC 33.1 (32-36) g/dL RDW Std Deviation 46.8 H (36.4-46.3) fL RDW Coeff of Gerardo 14.2 (11.5-14.5) % Plt Count 251 (130-400) K/uL MPV 10.0 (7.4-10.4) fL Immature Gran % (Auto) 0.6 % Neut % (Auto) 74.2 % Lymph % (Auto) 17.4 % [place] % (Auto) 6.9 % Eos % (Auto) 0.7 % Baso % (Auto) 0.2 % Immature Gran # (Auto) 0.07 H (0.00-0.02) K/uL Neut # (Auto) 9.33 H (1.4-6.5) K/uL Lymph # (Auto) 2.18 (1.2-3.4) K/uL [place] # (Auto) 0.86 H (0.11-0.59) K/uL Eos # (Auto) 0.09 (0-0.5) K/uL Baso # (Auto) 0.02 (0-0.2) K/uL Sodium 142 (136-145) mmol/L Potassium 3.4 L (3.5-5.1) mmol/L Chloride 114 H (98-107) mmol/L Carbon Dioxide 22 (21-32) mmol/L Anion Gap 7.0 (3-11) BUN 11 (7-18) mg/dl Creatinine 0.65 (0.6-1.2) mg/dl Est Cr Clr Drug Dosing 49.1 ml/min Est GFR ( Amer) 91.9 Est GFR (Non-Af Amer) 79.3 BUN/Creatinine Ratio 17.1 (10-20) Glucose 123 H (70-99) mg/dl POC Glucose 220 H (70-99) mg/dl Calcium 8.9 (8.5-10.1) mg/dl Magnesium 1.7 L (1.8-2.4) mg/dl Troponin I (0-0.045) ng/ml 01/19/20 Range/Units 16:30 WBC (4.8-10.8) K/uL RBC (4.2-5.4) M/uL Hgb (12.0-16.0) g/dL Hct (37-47) % MCV (80-100) fL MCH (25-34) pg MCHC (32-36) g/dL RDW Std Deviation (36.4-46.3) fL RDW Coeff of Gerardo (11.5-14.5) % Plt Count (130-400) K/uL MPV (7.4-10.4) fL Immature Gran % (Auto) % Neut % (Auto) % Lymph % (Auto) % [place] % (Auto) % Eos % (Auto) % Baso % (Auto) % Immature Gran # (Auto) (0.00-0.02) K/uL Neut # (Auto) (1.4-6.5) K/uL Lymph # (Auto) (1.2-3.4) K/uL [place] # (Auto) (0.11-0.59) K/uL Eos # (Auto) (0-0.5) K/uL Baso # (Auto) (0-0.2) K/uL Sodium (136-145) mmol/L Potassium (3.5-5.1) mmol/L Chloride (98-107) mmol/L Carbon Dioxide (21-32) mmol/L Anion Gap (3-11) BUN (7-18) mg/dl Creatinine (0.6-1.2) mg/dl Est Cr Clr Drug Dosing ml/min Est GFR ( Amer) Est GFR (Non-Af Amer) BUN/Creatinine Ratio (10-20) Glucose (70-99) mg/dl POC Glucose 117 H (70-99) mg/dl Calcium (8.5-10.1) mg/dl Magnesium (1.8-2.4) mg/dl Troponin I (0-0.045) ng/ml Medications Administered Current Inpatient Medications Acetaminophen (Tylenol) 650 mg PO Q4H PRN PRN Reason: Pain or Fever Stop: 02/17/20 07:54 Last Admin: 01/19/20 02:34 Dose: 650 mg Documented by: Amoxicillin/Clavulanate Potassium (Augmentin 500mg) 1 tab PO BIDM [facility]; Protocol Stop: 01/28/20 16:59 Last Admin: 01/20/20 08:40 Dose: 1 tab Documented by: Citalopram Hydrobromide (Celexa) 20 mg PO [facility] Stop: 02/17/20 20:59 Last Admin: 01/19/20 21:11 Dose: 20 mg Documented by: Sodium Chloride (Nss 1000ml) 1,000 mls @ 125 mls/hr IV .Q8H [facility] Stop: 02/17/20 07:54 Last Admin: 01/20/20 08:45 Dose: 125 mls/hr Documented by: Potassium Chloride (K Justo / Wtr) 10 meq in 100 mls @ 100 mls/hr IV Q1H [facility] Stop: 01/20/20 12:17 [facility]) [facility] Stop: 02/17/20 08:59 Last Admin: 01/20/20 08:39 Dose: 250 mg Documented by: Levothyroxine Sodium (Synthroid) 50 mcg PO DAILYBB [facility] Stop: 02/17/20 08:59 Last Admin: 01/20/20 05:33 Dose: 50 mcg Documented by: Lisinopril (Zestril) [facility] Stop: 02/17/20 08:59 Last Admin: 01/20/20 08:39 Dose: 5 mg Documented by: Lorazepam (Ativan) 1 mg PO BID [facility] Stop: 02/18/20 12:44 Last Admin: 01/20/20 08:45 Dose: 1 mg Documented by: Metoprolol Succinate (Toprol Xl) 100 [facility] [place] Stop: 02/17/20 08:59 Last Admin: 01/20/20 08:39 Dose: 100 mg Documented by: Morphine Sulfate (Morphine Sulfate) 2 mg IV Q4H PRN PRN Reason: Pain Stop: 02/01/20 07:54 Last Admin: 01/20/20 06:28 Dose: 2 mg Documented by: Nitroglycerin (Nitrostat) 0.4 mg SL UD PRN PRN Reason: Chest Pain Stop: 02/17/20 07:54 Ondansetron HCl (Zofran) 4 mg IV Q6H PRN PRN Reason: Nausea Stop: 02/17/20 07:54 Pantoprazole Sodium (Protonix) 40 mg PO DAILY [facility] Stop: 02/17/20 08:59 Last Admin: 01/20/20 08:39 Dose: 40 mg Documented by: Polyethylene Glycol (Miralax Powder Packet) 17 gm PO DAILY PRN PRN Reason: Constipation Stop: 02/17/20 07:54 (1) Fracture of maxillary sinus Encounter type: initial encounter Fracture type: closed Qualified Code(s): S02.401A - Maxillary fracture, unspecified side, initial encounter for closed fracture (2) Fall Encounter type: initial encounter Qualified Code(s): W19.XXXA - Unspecified fall, initial encounter (3) Closed fracture of left orbit Encounter type: initial encounter Qualified Code(s): S02.85XA - Fracture of orbit, unspecified, initial encounter for closed fracture (4) Laceration of eyebrow, left Encounter type: initial encounter Qualified Code(s): S01.112A - Laceration without foreign body of left eyelid and periocular area, initial encounter
[2020-01-20] MEDS: POTASSIUM CHLORIDE / WTR 10 MEQ/100 ML PLCT IV SCH ×2 (11:38→12:54)
--- NOTE | 2020-01-20 14:57 | Electrocardiogram Report ---
Test Reason : Blood Pressure : / mmHG Vent. Rate : 044 BPM Atrial Rate : 044 BPM P-R Int : 116 ms QRS Dur : 080 ms QT Int : 512 ms P-R-T Axes : 060 -12 024 degrees QTc Int : 437 ms Marked sinus bradycardia with sinus arrhythmia Abnormal ECG When compared with ECG of 18-JAN-2020 03:19, Vent. rate has decreased BY 30 BPM Nonspecific T wave abnormality no longer evident in Lateral leads Confirmed by Harish Beltran ([id number]) on 01/20/2020 2:57:11 PM Referred By: REFERRED SELF Confirmed By:Dex Beltran
[2020-01-20] MEDS: CITALOPRAM 20 MG TAB PO SCH (19:41)
[2020-01-20] MEDS ORDERED: DiphenhydrAMINE HCL 50 MG/ML VIAL IV STA (21:03)
[2020-01-21] MEDS: MoRPHine SULFATE 2 MG/ML CARP IV PRN ×2 (01:38→02:20)
[2020-01-21] MEDS: LEVOTHYROXINE SODIUM 50 MCG TABLET PO SCH (06:19)
[2020-01-21 08:04] LABS: Hematocrit (blood only) 36.8 % (37-47); Hemoglobin 12.2 g/dL (12.0-16.0); Mean Corpuscular Hemoglobin 30.3 pg (25-34); Mean Corpuscular Hgb Conc 33.2 g/dL (32-36); Mean Corpuscular Volume 91.3 fL (80-100); Mean Platelet Volume 9.8 fL (7.4-10.4); Platelet Count 248 K/uL (130-400); RDW Coefficient of Variation 14.3 % (11.5-14.5); RDW Standard Deviation 48.2 fL (36.4-46.3); Red Blood Count 4.03 M/uL (4.2-5.4); White Blood Count 16.61 K/uL (4.8-10.8)
[2020-01-21] MEDS: AMOXICILLIN/CLAVULANATE 500 MG TAB PO SCH (08:06)
[2020-01-21] MEDS: METOPROLOL SUCC 50MG EXT REL TAB PO SCH (08:06)
[2020-01-21] MEDS: LORazepam 1 MG TAB PO SCH ×2 (08:06→18:08)
[2020-01-21] MEDS: levETIRAcetam 250 MG TAB PO SCH ×2 (08:07→18:08)
[2020-01-21] MEDS: lisinopriL 5 MG TAB PO SCH (08:07)
[2020-01-21] MEDS: PANTOprazole 40 MG TAB PO SCH (08:07)
[2020-01-21 08:38] LABS: BUN Creatinine Ratio 16.6 (10-20); Creatinine Clr Calc Pharmacy 50.7 ml/min; Est GFR (African American) 92.8; Est GFR (Non-African American) 80.1; Magnesium 1.8 mg/dl (1.8-2.4); Potassium 3.7 mmol/L (3.5-5.1)
[2020-01-21] MEDS: SODIUM CHLORIDE 0.9% 1000ML 1,000 ML IV SCH (09:31)
[2020-01-21] MEDS ORDERED: POTASSIUM CHLORIDE 20 MEQ TABCR PO ONE (12:30)
[2020-01-21 14:50] LABS: Hematocrit (blood only) 34.7 % (37-47); Hemoglobin 11.7 g/dL (12.0-16.0); Mean Corpuscular Hemoglobin 30.7 pg (25-34); Mean Corpuscular Hgb Conc 33.7 g/dL (32-36); Mean Corpuscular Volume 91.1 fL (80-100); Mean Platelet Volume 10.2 fL (7.4-10.4); Platelet Count 245 K/uL (130-400); RDW Coefficient of Variation 14.4 % (11.5-14.5); RDW Standard Deviation 47.5 fL (36.4-46.3); Red Blood Count 3.81 M/uL (4.2-5.4); White Blood Count 17.53 K/uL (4.8-10.8)
[2020-01-21] MEDS ORDERED: PIPERACILL/TAZOBAC CONSULT ACTIVE PRN (15:43)
[2020-01-21] MEDS ORDERED: PIPERACILLIN/TAZOBACTAM 3.375 GM in DEXTROSE 5% 100 ML IV ONE (16:00)
[2020-01-21] MEDS ORDERED: AMLODIPINE BESYLATE 5 MG TAB PO ONE (16:30)
[2020-01-21] MEDS ORDERED: AMOXICILLIN/CLAVULANATE 875 MG TAB PO SCH (17:00)
[2020-01-21 17:56] LABS: Appearance Urine Clear (Clear); Bilirubin Urine Negative (Negative); Blood Urine Negative (Negative); Color Urine Yellow; Glucose Urine UA Negative (Negative); Ketones Urine 1+ (Negative); Leukocyte Esterase Urine Negative (Negative); Nitrite Urine Negative (Negative); Protein Urine Negative (Negative); Specific Gravity Urine 1.018 (1.000-1.030); Urobilinogen Urine Negative (Negative)
[2020-01-21] MEDS: CITALOPRAM 20 MG TAB PO SCH (18:08)
--- NOTE | 2020-01-21 18:40 | XRay Report ---
XR chest 1V portable HISTORY: 89 years-old Female poss. aspir., elev. WBC leukocytosis with possible aspiration COMPARISON: Chest radiograph 01/18/2020 TECHNIQUE: Portable AP view of the chest FINDINGS: Cardiac silhouette is mildly enlarged, unchanged. There is mild pulmonary vascular congestion. Calcif ied plaque of the thoracic aortic arch. Small pleural effusions have developed in the interval along with mild bibasilar densities. No pneumothorax. Degenerative changes of the shoulders and spine. IMPRESSION: 1. Cardiomegaly with interval development of pulmonary vascular congestion and probable mild pulmonar y edema. 2. New small pleural effusions with bibasilar densities suggestive of atelectasis versus pneumonitis. ACT 112: Negative or not required by law. The above report was generated using voice recognition software. It may contain grammatical, syntax o r spelling errors. Electronically signed by: Alexys Holland M.D. 01/21/2020 6:39 PM
[2020-01-21] MEDS ORDERED: METOPROLOL TARTRATE 1 MG/ML VIAL IV STA (20:05)
[2020-01-21] MEDS ORDERED: HALOPERIDOL LACTATE 5 MG/ML 1 ML VIAL IM PRN (20:15)
[2020-01-21] MEDS: PIPERACILLIN/TAZOBACTAM 3.375 GM in DEXTROSE 5% 100 ML IV SCH (20:50)
--- NOTE | 2020-01-21 21:45 | Hospitalist Progress Note ---
Date of Service January 21, 2020 Assessment & Plan (1) Closed fracture of left orbit: Status post mechanical fall CT of the face did not show inferior displacement of the fracture of the left inferior orbital margin and nondisplaced fracture lateral wall of left orbit Has periorbital ecchymosis and laceration over left upper area No visual abnormality, no subconjunctival hemorrhage Eye movement is minimally painful This was discussed with the cable maintainer and Dr. Tracy (prior hospitalist) and was advised that there is no imminent requirement for any ophthalmologic evaluation Periorbital bruising is much better and there is no visual impairment on examination If there is any problem she will need to see an cable maintainer down the line (2) Fracture of maxillary sinus: Fracture of the neck left maxillary and associated nasal bones noted following the fall Has significant pain there and swelling Orofacial surgery has been consulted - no surg. intervention planned Appreciate orofacial surgery input and recommendation - no surg. intervention planned Conservative management (3) Fall: Likely mechanical secondary to ambulatory dysfunction We will get PT and OT evaluation-PT OT recommended rehab Awaiting placement (4) Laceration of eyebrow, left: As above Has been getting better (5) Ambulatory dysfunction: Multifactorial osteoarthritis, deteriorating general health and is complicated by dementia PT and OT evaluation before discharge As before (6) Hypertension: BP noted to be elevated - likely d/t agitation, as pt gets confused and agitated - possibly d/t pain - Continue current medications, lisinopril and metoprolol succinate - will add small dose amlodipine - pt has been on IV fluid, will put on hold now, she reportedly has ok PO intake - will cont. to monitor - pain control Elevated troponin - very mildly elevated trop. noted likely secondary to above (hypertension) in the setting of urinary retention, recent fall - pt denies any chest pain, not likely ACS - Echo ordered - EF 60-65%, LV normal in size, no LV wall motion abnormality, mild conc. LVH, trace MR, trace TR, mild AR, RV syst. pressure mod. elevated at 40-50 Leukocytosis elevated WBC today (01/21) - likely reactive from recent fall, facial bone fractures, etc. - pt was on Augmentin to prevent infection from sinusitis given fractures as above - pt not taking afternoon meds - will eval other poss. for elevated WBC (UA, blood cltx, CXR) - will switch to zosyn from PO augmentin -cont. to monitor (7) Hypothyroid: Continue supplement (8) Depression: (9) Dementia: Pt gets confused and agitated at times, able to be re-oriented DVT prophylaxis SCD CODE STATUS Full Discussed with the son in detail Likely be transferred tomorrow to [facility] Admission and Anticipated Discharge Date Admission Date: January 20, 2020 Anticipated date of discharge: 01/20/20 Subjective Pt is sitting up in the bed, awake and alert and in NAD, but does not always answer questions appropriately. She keeps saying that "ppl are lying to her" but she can not say who, or what they told her. Denies any chest pain, shortness of breath, fever, chills, abd. pain, nausea or vomit. WBC elevated. Reportedly pt does not take her afternoon meds. Review of Systems Review of Systems: All systems reviewed & are unremarkable except as noted in HPI & below All systems reviewed and are unremarkable except as noted below Constitutional: no fever and no chills Eyes: Has left periorbital bruising with skin laceration involving the upper left corner. Does not have any abnormalities in vision and eye movement Respiratory: no cough and no dyspnea Cardiovascular: no chest pain and no palpitations Gastrointestinal: no abdominal pain, no nausea and no vomiting Physical Exam Physical Exam: Physical Exam: Elderly female sitting up in bed in NAD Constitutional: + ill appearing and + thin Eyes: + eyelid abnormality (Periorbital bruising with left upper eye skin laceration) Periorbital ecchymosis/bruising and swelling have been getting better ENMT: external ear and nose normal, oropharynx normal Swelling and minimal tenderness noted over left maxillary bone area Respiratory: no respiratory distress Auscultation: + diminished lung sounds and + crackles (minimal crackles at the bases) Cardiovascular: Rate/Rhythm: regular rate and regular rhythm, no murmurs noted Gastrointestinal (Abdomen): Inspection/Auscultation: abdomen normal to inspection and normal bowel sounds Musculoskeletal: No acute arthritis, moves extremities spontaneously Neuro/ Psych: awake and alert, does not always answer questions appropriately, speech fluent, no facial asymmetry, moves extremities spontaneously, mild tremor in her hands, Generally weak. Insight: Poor insight Results & Data ([facility]) Vital Signs (Past 12 Hours) Vital Signs Temp Pulse Pulse Resp BP BP BP 01/21/20 20:49 95 H 191/81 H 01/21/20 19:26 36.5 C 95 H 19 191/81 H 01/21/20 15:49 36.7 C 72 18 181/81 H 01/21/20 11:45 36.8 C 83 20 151/75 H 01/21/20 09:54 82 Pulse Ox 01/21/20 20:49 01/21/20 19:26 94 01/21/20 15:49 95 01/21/20 11:45 94 01/21/20 09:54 Laboratory Results 01/21/20 01/21/20 01/21/20 Range/Units 17:35 14:27 07:48 WBC 17.53 H (4.8-10.8) K/uL RBC 3.81 L (4.2-5.4) M/uL Hgb 11.7 L (12.0-16.0) g/dL Hct 34.7 L (37-47) % MCV 91.1 (80-100) fL MCH 30.7 (25-34) pg MCHC 33.7 (32-36) g/dL RDW Std Deviation 47.5 H (36.4-46.3) fL RDW Coeff of Gerardo 14.4 (11.5-14.5) % Plt Count 245 (130-400) K/uL MPV 10.2 (7.4-10.4) fL Sodium 141 (136-145) mmol/L Potassium 3.7 (3.5-5.1) mmol/L Chloride 113 H (98-107) mmol/L Carbon Dioxide 22 (21-32) mmol/L Anion Gap 6.0 (3-11) BUN 10 (7-18) mg/dl Creatinine 0.63 (0.6-1.2) mg/dl Est Cr Clr Drug Dosing 50.7 ml/min Est GFR ( Amer) 92.8 Est GFR (Non-Af Amer) 80.1 BUN/Creatinine Ratio 16.6 (10-20) Glucose 113 H (70-99) mg/dl Calcium 9.0 (8.5-10.1) mg/dl Magnesium 1.8 (1.8-2.4) mg/dl Urine Color Yellow Urine Appearance Clear (Clear) Urine pH 5.0 (4.5-7.5) Ur Specific [place] 1.018 (1.000-1.030) Urine Protein Negative (Negative) Urine Glucose (UA) Negative (Negative) Urine Ketones 1+ H (Negative) Urine Blood Negative (Negative) Urine Nitrite Negative (Negative) Urine Bilirubin Negative (Negative) Urine Urobilinogen Negative (Negative) Ur Leukocyte Esterase Negative (Negative) 01/21/20 Range/Units 07:48 WBC 16.61 H (4.8-10.8) K/uL RBC 4.03 L (4.2-5.4) M/uL Hgb 12.2 (12.0-16.0) g/dL Hct 36.8 L (37-47) % MCV 91.3 (80-100) fL MCH 30.3 (25-34) pg MCHC 33.2 (32-36) g/dL RDW Std Deviation 48.2 H (36.4-46.3) fL RDW Coeff of Gerardo 14.3 (11.5-14.5) % Plt Count 248 (130-400) K/uL MPV 9.8 (7.4-10.4) fL Sodium (136-145) mmol/L Potassium (3.5-5.1) mmol/L Chloride (98-107) mmol/L Carbon Dioxide (21-32) mmol/L Anion Gap (3-11) BUN (7-18) mg/dl Creatinine (0.6-1.2) mg/dl Est Cr Clr Drug Dosing ml/min Est GFR ( Amer) Est GFR (Non-Af Amer) BUN/Creatinine Ratio (10-20) Glucose (70-99) mg/dl Calcium (8.5-10.1) mg/dl Magnesium (1.8-2.4) mg/dl Urine Color Urine Appearance (Clear) Urine pH (4.5-7.5) Ur Specific [place] (1.000-1.030) Urine Protein (Negative) Urine Glucose (UA) (Negative) Urine Ketones (Negative) Urine Blood (Negative) Urine Nitrite (Negative) Urine Bilirubin (Negative) Urine Urobilinogen (Negative) Ur Leukocyte Esterase (Negative) Medications Administered Current Inpatient Medications Acetaminophen (Tylenol) 650 mg PO Q4H PRN PRN Reason: Pain or Fever Stop: 02/17/20 07:54 Last Admin: 01/19/20 02:34 Dose: 650 mg Documented by: Amoxicillin/Clavulanate Potassium (Augmentin 875mg) 1 tab PO BIDM [facility]; Protocol Citalopram Hydrobromide (Celexa) 20 mg PO HS [facility] Stop: 02/17/20 20:59 Last Admin: 01/21/20 18:08 Dose: 20 mg Documented by: Haloperidol Lactate (Haldol) 2.5 mg IM Q2H PRN PRN Reason: Agitation Stop: 02/20/20 20:14 Hydralazine HCl (Apresoline) 25 mg PO NOW STA Stop: 01/21/20 21:42 Piperacillin Sod/Tazobactam (Sod 3.375 gm/ Dextrose) 115 mls @ 28.75 mls/hr IV Q8H [facility]; Protocol Stop: 01/23/20 19:59 Last Admin: 01/21/20 20:50 Dose: 28.8 mls/hr Documented by: Levetiracetam (Keppra) 250 mg PO AMHS [facility] Stop: 02/17/20 08:59 Last Admin: 01/21/20 18:08 Dose: 250 mg Documented by: Levothyroxine Sodium (Synthroid) 50 mcg PO DAILYBB [facility] Stop: 02/17/20 08:59 Last Admin: 01/21/20 06:19 Dose: 50 mcg Documented by: Lisinopril (Zestril) 5 mg PO QAM [facility] Stop: 02/17/20 08:59 Last Admin: 01/21/20 08:07 Dose: 5 mg Documented by: Lorazepam (Ativan) 1 mg PO BID [facility] Stop: 02/18/20 12:44 Last Admin: 01/21/20 18:08 Dose: 1 mg Documented by: Metoprolol Succinate (Toprol Xl) 100 mg PO QAM [facility] Stop: 02/17/20 08:59 Last Admin: 01/21/20 08:06 Dose: 100 mg Documented by: Metoprolol Tartrate (Lopressor) 5 mg IV Q6 [facility] Stop: 02/21/20 00:00 Miscellaneous Information (Consult) 1 ea N/A UD PRN PRN Reason: Consult Stop: 02/20/20 15:42 Morphine Sulfate (Morphine Sulfate) 1 mg IV Q4H PRN PRN Reason: Pain Stop: 02/01/20 07:54 Last Admin: 01/21/20 02:20 Dose: 1 mg Documented by: Nitroglycerin (Nitrostat) 0.4 mg SL UD PRN PRN Reason: Chest Pain Stop: 02/17/20 07:54 Ondansetron HCl (Zofran) 4 mg IV Q6H PRN PRN Reason: Nausea Stop: 02/17/20 07:54 Pantoprazole Sodium (Protonix) 40 mg PO DAILY [facility] Stop: 02/17/20 08:59 Last Admin: 01/21/20 08:07 Dose: 40 mg Documented by: Polyethylene Glycol (Miralax Powder Packet) 17 gm PO DAILY PRN PRN Reason: Constipation Stop: 02/17/20 07:54 (1) Fracture of maxillary sinus Encounter type: initial encounter Fracture type: closed Qualified Code(s): S02.401A - Maxillary fracture, unspecified side, initial encounter for closed fracture (2) Fall Encounter type: initial encounter Qualified Code(s): W19.XXXA - Unspecified fall, initial encounter (3) Closed fracture of left orbit Encounter type: initial encounter Qualified Code(s): S02.85XA - Fracture of orbit, unspecified, initial encounter for closed fracture (4) Laceration of eyebrow, left Encounter type: initial encounter Qualified Code(s): S01.112A - Laceration without foreign body of left eyelid and periocular area, initial encounter
[2020-01-21] MEDS: METOPROLOL TARTRATE 1 MG/ML VIAL IV SCH (23:54)
[2020-01-22] MEDS: MoRPHine SULFATE 2 MG/ML CARP IV PRN (03:18)
[2020-01-22] MEDS: PIPERACILLIN/TAZOBACTAM 3.375 GM in DEXTROSE 5% 100 ML IV SCH ×3 (04:59→20:33)
[2020-01-22] MEDS: LEVOTHYROXINE SODIUM 50 MCG TABLET PO SCH (05:41)
[2020-01-22] MEDS: METOPROLOL TARTRATE 1 MG/ML VIAL IV SCH (05:44)
[2020-01-22 06:39] LABS: Hematocrit (blood only) 37.1 % (37-47); Hemoglobin 12.6 g/dL (12.0-16.0); Mean Corpuscular Hemoglobin 30.6 pg (25-34); Mean Platelet Volume 9.9 fL (7.4-10.4); Platelet Count 257 K/uL (130-400); RDW Coefficient of Variation 14.3 % (11.5-14.5); RDW Standard Deviation 46.9 fL (36.4-46.3); Red Blood Count 4.12 M/uL (4.2-5.4); White Blood Count 24.59 K/uL (4.8-10.8)
[2020-01-22 07:15] LABS: BUN Creatinine Ratio 13.5 (10-20); Calcium 8.8 mg/dl (8.5-10.1); Creatinine Clr Calc Pharmacy 58.8 ml/min; Est GFR (African American) 97.1; Est GFR (Non-African American) 83.7; Magnesium 1.6 mg/dl (1.8-2.4); Potassium 3.1 mmol/L (3.5-5.1)
[2020-01-22] MEDS: LORazepam 1 MG TAB PO SCH ×2 (07:50→20:33)
[2020-01-22] MEDS: levETIRAcetam 250 MG TAB PO SCH ×2 (07:51→20:34)
[2020-01-22] MEDS: lisinopriL 5 MG TAB PO SCH (07:51)
[2020-01-22] MEDS: PANTOprazole 40 MG TAB PO SCH (07:51)
--- NOTE | 2020-01-22 09:05 | Hospitalist Progress Note ---
Date of Service January 22, 2020 Assessment & Plan (1) Closed fracture of left orbit: Complex fracture left facial region Status post mechanical fall CT of the face showed inferior displacement of the fracture of the left inferior orbital margin and nondisplaced fracture lateral wall of left orbit Has periorbital ecchymosis and laceration over left upper area No visual abnormality, no subconjunctival hemorrhage Eye movement is minimally painful This was discussed with the publishing director and Dr. Tracy (prior hospitalist) and was advised that there is no imminent requirement for any ophthalmologic evaluation Periorbital bruising is much better and there is no visual impairment on examination If there is any problem she will need to see an publishing director down the line (2) Fracture of maxillary sinus: Fracture of the anterior left maxillary sinus wall with moderate posterior displacement of 3mm, and associated nasal bones noted following the fall Had significant pain there and swelling on admission Currently denies any pain, comfortable Orofacial surgery has been consulted - no surg. intervention planned Appreciate orofacial surgery input and recommendation - no surg. intervention planned Conservative management (3) Fall: Likely mechanical secondary to ambulatory dysfunction We will get PT and OT evaluation-PT OT recommended rehab/SNF Awaiting placement (4) Laceration of eyebrow, left: As above Has been getting better (5) Ambulatory dysfunction: Multifactorial osteoarthritis, deteriorating general health and is complicated by dementia PT and OT evaluation before discharge As before (6) Hypertension: BP noted to be elevated - likely d/t agitation, as pt gets confused and agitated - possibly d/t pain - Continue current medications, lisinopril and metoprolol succinate - will add small dose amlodipine - pt has been on IV fluid, will put on hold now, she reportedly has ok PO intake - will cont. to monitor - pain control Tachycardia - often secondary to agitation however PE was not ruled out on admission and pt presented with fall, on admission it was believed to be mechanical in origin - new findings on CXR, will obtain chest CT and will eval for poss. PE Elevated troponin - very mildly elevated trop. noted likely secondary to above (hypertension) in the setting of urinary retention, recent fall - pt denies any chest pain, not likely ACS - Echo ordered - EF 60-65%, LV normal in size, no LV wall motion abnormality, mild conc. LVH, trace MR, trace TR, mild AR, RV syst. pressure mod. elevated at 40-50 Leukocytosis elevated WBC and trending up - likely partially reactive from recent fall, facial bone fractures, etc., however concern for underlying infection is high (pt has not had any fever though) - pt was on Augmentin to prevent infection from sinusitis given fractures as above - pt not taking afternoon meds - will eval other poss. for elevated WBC (UA, blood cltx, CXR), UA negative, blood cltx - pending, CXR - prob.developing mild pulm. edema, atelectesis vs. pneumonitis - switched to zosyn from PO augmentin - will add doxycycline - will obtain nasal swab for MRSA - will consult ID for further recs - cont. to monitor (7) Hypothyroid: Continue supplement (8) Depression: (9) Dementia: Pt gets confused and agitated at times (usually at bnight time), often able to be re-oriented during the day DVT prophylaxis SCDs CODE STATUS Full Discussed with the son in detail Dispo: plan to d/c to [facility] when mediacally stable Admission and Anticipated Discharge Date Admission Date: January 20, 2020 Anticipated date of discharge: 01/20/20 Subjective Overnight reported, patient agitated, received Haldol, per nursing staff that did not quite help. Currently patient is sitting up in the chair, completely calm, in no acute distress. Per review of her chart, recently patient's been quite hypertensive, tachycardic. Currently her blood pressure is 132/69, she is comfortable, denies any chest pain, shortness of breath, abdominal pain, nausea, vomiting. Denies any fevers or chills. Unfortunately due to dementia, patient is a poor historian, and difficult to assess review of system. Yesterday, she kept saying that "people are lying to her" but she can not say who, or what they told her. Nursing staff also reported, that her neighbor could not sleep all night because the patient was agitated, now patient was moved to a private room. WBC continues to be elevated and trending up. Review of Systems Review of Systems: All systems reviewed & are unremarkable except as noted in HPI & below All systems reviewed and are unremarkable except as noted below However due to dementia, difficult to obtain proper ROS Constitutional: no fever and no chills Eyes: Has left periorbital bruising with skin laceration involving the upper left corner. Does not have any abnormalities in vision and eye movement Respiratory: no cough and no dyspnea Cardiovascular: no chest pain, no palpitations and no edema Gastrointestinal: no abdominal pain, no nausea and no vomiting Physical Exam Physical Exam: Physical Exam: Elderly female sitting up in bed in [facility] Constitutional: + ill appearing and + thin Eyes: + eyelid abnormality (Periorbital bruising with left upper eye skin laceration) Periorbital ecchymosis/bruising and swelling have been getting better ENMT: external ear and nose normal, oropharynx normal Swelling and minimal tenderness noted over left maxillary bone area Respiratory: no respiratory distress Auscultation: + diminished lung sounds and + crackles (minimal crackles at the bases) Cardiovascular: Rate/Rhythm: regular rate and regular rhythm, no murmurs noted Gastrointestinal (Abdomen): Inspection/Auscultation: abdomen normal to inspection and normal bowel sounds Musculoskeletal: No acute arthritis, moves extremities spontaneously Neuro/ Psych: awake and alert, does not always answer questions appropriately,no facial asymmetry, moves extremities spontaneously, mild tremor in her hands, Generally weak. Insight: Poor insight Results & Data ([facility]) Vital Signs (Past 12 Hours) Vital Signs Temp Pulse Pulse Resp BP BP Pulse Ox 01/22/20 07:06 36.3 C L 108 H 25 H 187/98 H 92 01/22/20 05:44 174/82 H 01/22/20 00:45 37.3 C 101 H 20 186/98 H 93 01/22/20 00:00 84 01/21/20 23:54 138/79 Laboratory Results 01/22/20 01/22/20 01/21/20 Range/Units 06:22 06:22 17:35 WBC 24.59 H (4.8-10.8) K/uL RBC 4.12 L (4.2-5.4) M/uL Hgb 12.6 (12.0-16.0) g/dL Hct 37.1 (37-47) % MCV 90.0 (80-100) fL MCH 30.6 (25-34) pg MCHC 34.0 (32-36) g/dL RDW Std Deviation 46.9 H (36.4-46.3) fL RDW Coeff of Gerardo 14.3 (11.5-14.5) % Plt Count 257 (130-400) K/uL MPV 9.9 (7.4-10.4) fL Sodium 137 (136-145) mmol/L Potassium 3.1 L D (3.5-5.1) mmol/L Chloride 107 (98-107) mmol/L Carbon Dioxide 21 (21-32) mmol/L Anion Gap 9.0 (3-11) BUN 8 (7-18) mg/dl Creatinine 0.55 L (0.6-1.2) mg/dl Est Cr Clr Drug Dosing 58.8 ml/min Est GFR ( Amer) 97.1 Est GFR (Non-Af Amer) 83.7 BUN/Creatinine Ratio 13.5 (10-20) Glucose 165 H (70-99) mg/dl Calcium 8.8 (8.5-10.1) mg/dl Magnesium 1.6 L (1.8-2.4) mg/dl Urine Color Yellow Urine Appearance Clear (Clear) Urine pH 5.0 (4.5-7.5) Ur Specific [place] 1.018 (1.000-1.030) Urine Protein Negative (Negative) Urine Glucose (UA) Negative (Negative) Urine Ketones 1+ H (Negative) Urine Blood Negative (Negative) Urine Nitrite Negative (Negative) Urine Bilirubin Negative (Negative) Urine Urobilinogen Negative (Negative) Ur Leukocyte Esterase Negative (Negative) 01/21/20 Range/Units 14:27 WBC 17.53 H (4.8-10.8) K/uL RBC 3.81 L (4.2-5.4) M/uL Hgb 11.7 L (12.0-16.0) g/dL Hct 34.7 L (37-47) % MCV 91.1 (80-100) fL MCH 30.7 (25-34) pg MCHC 33.7 (32-36) g/dL RDW Std Deviation 47.5 H (36.4-46.3) fL RDW Coeff of Gerardo 14.4 (11.5-14.5) % Plt Count 245 (130-400) K/uL MPV 10.2 (7.4-10.4) fL Sodium (136-145) mmol/L Potassium (3.5-5.1) mmol/L Chloride (98-107) mmol/L Carbon Dioxide (21-32) mmol/L Anion Gap (3-11) BUN (7-18) mg/dl Creatinine (0.6-1.2) mg/dl Est Cr Clr Drug Dosing ml/min Est GFR ( Amer) Est GFR (Non-Af Amer) BUN/Creatinine Ratio (10-20) Glucose (70-99) mg/dl Calcium (8.5-10.1) mg/dl Magnesium (1.8-2.4) mg/dl Urine Color Urine Appearance (Clear) Urine pH (4.5-7.5) Ur Specific [place] (1.000-1.030) Urine Protein (Negative) Urine Glucose (UA) (Negative) Urine Ketones (Negative) Urine Blood (Negative) Urine Nitrite (Negative) Urine Bilirubin (Negative) Urine Urobilinogen (Negative) Ur Leukocyte Esterase (Negative) Medications Administered Current Inpatient Medications Acetaminophen (Tylenol) 650 mg PO Q4H PRN PRN Reason: Pain or Fever Stop: 02/17/20 07:54 Last Admin: 01/19/20 02:34 Dose: 650 mg Documented by: Amoxicillin/Clavulanate Potassium (Augmentin 875mg) 1 tab PO BIDM [facility]; Protocol Citalopram Hydrobromide (Celexa) 20 mg PO HS [facility] Stop: 02/17/20 20:59 Last Admin: 01/21/20 18:08 Dose: 20 mg Documented by: Haloperidol Lactate (Haldol) 2.5 mg IM Q2H PRN PRN Reason: Agitation Stop: 02/20/20 20:14 Last Admin: 01/22/20 00:06 Dose: 2.5 mg Documented by: Piperacillin Sod/Tazobactam (Sod 3.375 gm/ Dextrose) 115 mls @ 28.75 mls/hr IV Q8H [facility]; Protocol Stop: 01/23/20 19:59 Last Admin: 01/22/20 04:59 Dose: 28.8 mls/hr Documented by: Potassium Chloride (K Justo / Wtr) 10 meq in 100 mls @ 100 mls/hr IV Q1H [facility] Stop: 01/22/20 10:00 Magnesium Sulfate/Dextrose (Magnesium Sulfate / D5w) 1 gm in 100 mls @ 100 mls/hr IV Q1H [facility] Stop: 01/22/20 11:14 Levetiracetam (Keppra) 250 mg PO AMHS [facility] Stop: 02/17/20 08:59 Last Admin: 01/22/20 07:51 Dose: 250 mg Documented by: Levothyroxine Sodium (Synthroid) 50 mcg PO DAILYBB [facility] Stop: 02/17/20 08:59 Last Admin: 01/22/20 05:41 Dose: 50 mcg Documented by: Lisinopril (Zestril) 5 mg PO QAM [facility] Stop: 02/17/20 08:59 Last Admin: 01/22/20 07:51 Dose: 5 mg Documented by: Lorazepam (Ativan) 1 mg PO BID [facility] Stop: 02/18/20 12:44 Last Admin: 01/22/20 07:50 Dose: 1 mg Documented by: Metoprolol Su[facility]inate ([facility]l) [facility] [place] Stop: 02/17/20 08:59 Last Admin: 01/21/20 08:06 Dose: 100 mg Documented by: Miscellaneous Information (Consult) 1 ea N/A UD PRN PRN Reason: Consult Stop: 02/20/20 15:42 Morphine Sulfate (Morphine Sulfate) 1 mg IV Q4H PRN PRN Reason: Pain Stop: 02/01/20 07:54 Last Admin: 01/22/20 03:18 Dose: 1 mg Documented by: Nitroglycerin (Nitrostat) 0.4 mg UD PRN PRN Reason: Chest Pain Stop: 02/17/20 07:54 Ondansetron HCl (Zofran) 4 mg IV Q6H PRN PRN Reason: Nausea Stop: 02/17/20 07:54 Pantoprazole Sodium (Protonix) 40 mg PO DAILY [facility] Stop: 02/17/20 08:59 Last Admin: 01/22/20 07:51 Dose: 40 mg Documented by: Polyethylene Glycol (Miralax Powder Packet) 17 gm PO DAILY PRN PRN Reason: Constipation Stop: 02/17/20 07:54 Potassium Chloride (Anais Ciel Elix) 40 meq PO NOW [facility] Stop: 01/22/20 09:03 (1) Fracture of maxillary sinus Encounter type: initial encounter Fracture type: closed Qualified Code(s): S02.401A - Maxillary fracture, unspecified side, initial encounter for closed fracture (2) Fall Encounter type: initial encounter Qualified Code(s): W19.XXXA - Unspecified fall, initial encounter (3) Closed fracture of left orbit Encounter type: initial encounter Qualified Code(s): S02.85XA - Fracture of orbit, unspecified, initial encounter for closed fracture (4) Laceration of eyebrow, left Encounter type: initial encounter Qualified Code(s): S01.112A - Laceration without foreign body of left eyelid and periocular area, initial encounter
[2020-01-22] MEDS ORDERED: AMLODIPINE BESYLATE 5 MG TAB PO ONE ×2 (10:00→19:22)
[2020-01-22] MEDS ORDERED: POTASSIUM CHLORIDE 20 MEQ/15 ML UDC PO ONE (10:00)
[2020-01-22] MEDS: METOPROLOL SUCC 50MG EXT REL TAB PO SCH (10:05)
[2020-01-22] MEDS: MAGNESIUM SULFATE / D5W 1 GM/100 ML BAG IV SCH ×2 (10:06→11:12)
[2020-01-22 10:07] LABS: Bilirubin Direct 0.2 mg/dl (0-0.2); Bilirubin,Total 1.4 mg/dl (0.2-1); Total Protein 6.8 gm/dl (6.4-8.2)
[2020-01-22] MEDS: POTASSIUM CHLORIDE / WTR 10 MEQ/100 ML PLCT IV SCH ×4 (10:17→13:09)
[2020-01-22] MEDS ORDERED: OPTIRAY 320 125ml IV PRN (10:35)
[2020-01-22] MEDS: DOXYCYCLINE HYCLATE 100 MG in DEXTROSE 5% 100 ML IV SCH ×2 (10:49→20:33)
--- NOTE | 2020-01-22 10:51 | CT Scan Report ---
CT angio chest PE protocol CT DOSE: 370.23 mGy.cm HISTORY: Dyspnea rule out PE TECHNIQUE: Multiaxial CT images of the chest were performed following the intravenous administration of contrast to evaluate the pulmonary arteries. Maximal intensity projection images were also obtaine d. A dose lowering technique was utilized adhering to the principles of ALARA. COMPARISON STUDY: 05/01/2013 FINDINGS: Bilateral pleural effusions. Normal thoracic aorta. The pulmonary vasculature enhances appropriately. No significant mediastinal or hilar adenopathy. Sta ble upper pole left renal cyst. Prominent pulmonary vasculature. IMPRESSION: 1. No evidence for pulmonary embolus. 2. Bilateral pleural effusions. 3. Moderate prominence of the pulmonary vasculature. ACT 112: Negative or not required by law. The above report was generated using voice recognition software. It may contain grammatical, syntax or spelling errors. Electronically signed by: Rashad Suarez M.D. 01/22/2020 10:49 AM
[2020-01-22] MEDS ORDERED: HydrALAZINE 10 MG TAB PO PRN (11:02)
--- NOTE | 2020-01-22 12:53 | Infectious Disease Consult ---
Date of Consultation January 22, 2020 Assessment & Plan (1) Closed fracture of left orbit: no clear infectious etiology, suspect reactive due to trauma. cultures pending. (2) Fracture of maxillary sinus: (3) Laceration of eyebrow, left: (4) Fall: History of Present Illness Attending Physician: Joao Singh MD pt admitted after fall at home, found to have several complex left sided facial fractures, eval by surgery, no intervention. she is afebrile since admission, has had increasing wbc, 24 today, currently on no steroids. blood cultures pending, on several abx including IV zosyn, doxy and po augmentin. has dementia, unable to obtain ros. ID consulted for wbc elevation Allergies Allergy/AdvReac Type Severity Reaction Status Date / Time oxycodone Allergy Mild RED Verified 01/18/20 05:25 FLUSHED FACE tramadol AdvReac Mild GI UPSET Verified 01/18/20 05:25 Home Medications Home Medications Medication Instructions Recorded Confirmed Type aspirin 81 mg PO QAM 01/18/20 01/18/20 History citalopram 20 mg PO HS 01/18/20 01/18/20 History levetiracetam 250 mg PO AMHS 01/18/20 01/18/20 History levothyroxine 50 mcg PO QAM 01/18/20 01/18/20 History lisinopril 5 mg PO QAM 01/18/20 01/18/20 History lorazepam 1 mg PO HS 01/18/20 01/18/20 History metoprolol succinate 100 mg PO QAM 01/18/20 01/18/20 History Patient History Medical History Anxiety Wlhogjq-Zlntu-Ksufq atrophy Dementia Depression Dermatitis Hypertension Hypothyroid Irritable bowel syndrome TIA (transient ischemic attack) several years ago Family History Other No pertinent family history in first degree relatives Social History Preferred Language: Romansh Communication Ability: Impaired Devil Tender Required: No Beliefs That Will Affect Care: None marital status: / Current Living Situation: Family Current Living Situation Comment: lives with her son Samir Other Information That Helps Us Care for You: No Feels Safe at Home: Yes Safety Concerns: Feels Safe At This Time Smoking Status: Never smoker Do You Dip or Chew Tobacco: No ; Second Hand Exposure: No ; Tobacco Cessation Education Requested by Patient: No Hx Alcohol Use: No Hx Substance Use: No Review of Systems Review of Systems: Unobtainable due to cognitive status Physical Exam Constitutional: WD/WN, vitals as above Eyes: PERRL, conjunctivae normal, anicteric sclerae ENMT: external ear and nose normal, oropharynx normal Neck: normal visual inspection Respiratory: normal respiratory effort, lungs clear to auscultation Cardiovascular: RRR, no murmur, no edema Gastrointestinal (Abdomen): normal bowel sounds, soft, nontender, no hepatosplenomegaly Musculoskeletal: Head/Neck/Chest: normocephalic and head atraumatic Skin: no rashes, warm and dry + ecchymosis and + purpura Psychiatric: Orientation: alert Results & Data ([facility]) Vital Signs (Past 12 Hours) Vital Signs Temp Pulse Pulse Pulse Resp BP BP 01/22/20 11:59 36.7 C 94 H 18 149/74 H 01/22/20 09:55 85 132/69 01/22/20 07:45 99 H 01/22/20 07:06 36.3 C L 108 H 25 H 187/98 H 01/22/20 05:44 174/82 H Pulse Ox 01/22/20 11:59 93 01/22/20 09:55 01/22/20 07:45 01/22/20 07:06 92 01/22/20 05:44 PG Care Time/CCT Total # of Minutes Spent Total Time Spent with Patient: Total time spent is greater than 50% in coordination of care (as documented) at patient's floor/unit and/or counseling patient: Coding Level of Care Code 50847 Inpt Consult Level 4 Diagnoses Closed fracture of left orbit S02.85XA Encounter type: initial encounter Fracture of maxillary sinus S02.401A Encounter type: initial encounter Fracture type: closed Laceration of eyebrow, left S01.112A Encounter type: initial encounter Fall W19.XXXA Encounter type: initial encounter (1) Fracture of maxillary sinus Encounter type: initial encounter Fracture type: closed Qualified Code(s): S02.401A - Maxillary fracture, unspecified side, initial encounter for closed fracture (2) Fall Encounter type: initial encounter Qualified Code(s): W19.XXXA - Unspecified fall, initial encounter (3) Closed fracture of left orbit Encounter type: initial encounter Qualified Code(s): S02.85XA - Fracture of orbit, unspecified, initial encounter for closed fracture (4) Laceration of eyebrow, left Encounter type: initial encounter Qualified Code(s): S01.112A - Laceration w ithout foreign body of left eyelid and periocular area, initial encounter
[2020-01-22] MEDS: FUROSEMIDE 20 MG TAB PO SCH (15:28)
[2020-01-22] MEDS: guaiFENesin 600 MG TABCR PO SCH (20:34)
[2020-01-22] MEDS: CITALOPRAM 20 MG TAB PO SCH (20:35)
[2020-01-23] MEDS: PIPERACILLIN/TAZOBACTAM 3.375 GM in DEXTROSE 5% 100 ML IV SCH ×2 (04:11→11:55)
[2020-01-23] MEDS: LEVOTHYROXINE SODIUM 50 MCG TABLET PO SCH (06:40)
[2020-01-23 07:09] LABS: Hematocrit (blood only) 34.8 % (37-47); Hemoglobin 11.9 g/dL (12.0-16.0); Mean Corpuscular Hemoglobin 30.8 pg (25-34); Mean Corpuscular Hgb Conc 34.2 g/dL (32-36); Mean Corpuscular Volume 90.2 fL (80-100); Mean Platelet Volume 10.1 fL (7.4-10.4); Platelet Count 240 K/uL (130-400); RDW Coefficient of Variation 14.5 % (11.5-14.5); RDW Standard Deviation 47.7 fL (36.4-46.3); Red Blood Count 3.86 M/uL (4.2-5.4); White Blood Count 15.19 K/uL (4.8-10.8)
[2020-01-23] MEDS: LORazepam 1 MG TAB PO SCH ×2 (07:21→20:57)
[2020-01-23] MEDS: lisinopriL 5 MG TAB PO SCH (07:22)
[2020-01-23] MEDS: levETIRAcetam 250 MG TAB PO SCH ×2 (07:22→20:57)
[2020-01-23] MEDS: guaiFENesin 600 MG TABCR PO SCH ×2 (07:22→20:58)
[2020-01-23] MEDS: PANTOprazole 40 MG TAB PO SCH (07:24)
[2020-01-23] MEDS: METOPROLOL SUCC 50MG EXT REL TAB PO SCH (07:25)
[2020-01-23 07:34] LABS: BUN Creatinine Ratio 15.1 (10-20); Calcium 8.9 mg/dl (8.5-10.1); Creatinine Clr Calc Pharmacy 49.4 ml/min; Est GFR (African American) 91.9; Est GFR (Non-African American) 79.3; Phosphorus 2.5 mg/dl (2.5-4.9); Potassium 3.4 mmol/L (3.5-5.1)
[2020-01-23] MEDS ORDERED: POTASSIUM CHLORIDE 20 MEQ TABCR PO STA (08:04)
--- NOTE | 2020-01-23 08:08 | Hospitalist Progress Note ---
Date of Service January 23, 2020 Assessment & Plan (1) Closed fracture of left orbit: Complex fracture left facial region Status post mechanical fall CT of the face showed inferior displacement of the fracture of the left inferior orbital margin and nondisplaced fracture lateral wall of left orbit Has periorbital ecchymosis and laceration over left upper area No visual abnormality, no subconjunctival hemorrhage Eye movement is minimally painful This was discussed with the lumber stacker and Dr. Tracy (prior hospitalist) and was advised that there is no imminent requirement for any ophthalmologic evaluation Periorbital bruising is much better and there is no visual impairment on examination If there is any problem she will need to see an lumber stacker down the line (2) Fracture of maxillary sinus: Fracture of the anterior left maxillary sinus wall with moderate posterior displacement of 3mm, and associated nasal bones noted following the fall Had significant pain there and swelling on admission Currently denies any pain, comfortable Orofacial surgery has been consulted - no surg. intervention planned Appreciate orofacial surgery input and recommendation - no surg. intervention planned Conservative management (3) Fall: Likely mechanical secondary to ambulatory dysfunction We will get PT and OT evaluation-PT OT recommended rehab/SNF Awaiting placement (4) Laceration of eyebrow, left: As above Has been getting better (5) Ambulatory dysfunction: Multifactorial osteoarthritis, deteriorating general health and is complicated by dementia PT and OT evaluation before discharge As before (6) Hypertension: BP noted to be elevated, now well controlled - likely d/t agitation, as pt gets confused and agitated - possibly d/t pain - Continue current medications, lisinopril and metoprolol succinate - added amlodipine - pt was on IV fluid, now stopped - will cont. to monitor - pain control Tachycardia - often secondary to agitation however PE was not ruled out on admission and pt presented with fall, on admission it was believed to be mechanical in origin - new findings on CXR, will obtain chest CT and will eval for poss. PE - CTA negative for PE, noted pl. effusions on CT chest Elevated troponin - very mildly elevated trop. noted likely secondary to above (hypertension) in the setting of urinary retention, recent fall - pt denies any chest pain, not likely ACS, more likely demand ischemia from significant hypertension etc. - Echo ordered - EF 60-65%, LV normal in size, no LV wall motion abnormality, mild conc. LVH, trace MR, trace TR, mild AR, RV syst. pressure mod. elevated at 40-50 Leukocytosis elevated WBC and trending up - likely reactive from recent fall, facial bone fractures, etc., however concern for underlying infection is high (pt has not had any fever though) - pt was on Augmentin to prevent infection from sinusitis given fractures as above, but she was not taking her medications - will eval other poss. causes for elevated WBC (UA, blood cltx, CXR), UA negative, blood cltx - pending, CXR - prob.developing mild pulm. edema, atelectesis vs. pneumonitis - switched to IV zosyn from PO augmentin, cont. IV Abx - added doxycycline, cont. - will obtain nasal swab for MRSA - will consult ID for further recs - no further recommendations, no signs of infx at this time, likely secondary to fall, blood cltx - pending - will gently diurese to eliminate pl. effusions - cont. to monitor (7) Hypothyroid: Continue supplement (8) Depression: (9) Dementia: Pt gets confused and agitated at times (usually at night time), often able to be re-oriented during the day DVT prophylaxis SCDs CODE STATUS Full Discussed with the son in detail Dispo: plan to d/c to [facility] when medically stable Admission and Anticipated Discharge Date Admission Date: January 20, 2020 Anticipated date of discharge: 01/20/20 Subjective Pt is lying in bed, sleepy, in NAD. Comfortable, no complaints. Review of Systems Review of Systems: All systems reviewed & are unremarkable except as noted in HPI & below All systems reviewed and are unremarkable except as noted below However due to dementia, difficult to obtain proper ROS Eyes: Has left periorbital bruising with skin laceration involving the upper left corner. Does not have any abnormalities in vision and eye movement Physical Exam Physical Exam: Physical Exam: Elderly female sitting up in bed in NAD Constitutional: + ill appearing and + thin Eyes: + eyelid abnormality (Periorbital bruising with left upper eye skin laceration) Periorbital ecchymosis/bruising and swelling have been getting better ENMT: external ear and nose normal, oropharynx normal Swelling and minimal tenderness noted over left maxillary bone area Respiratory: no respiratory distress Auscultation: + diminished lung sounds and + bibasilar crackles Cardiovascular: Rate/Rhythm: regular rate and regular rhythm, no murmurs noted Gastrointestinal (Abdomen): Inspection/Auscultation: abdomen normal to inspection and normal bowel sounds Musculoskeletal: No acute arthritis, moves extremities spontaneously Neuro/ Psych: awake and alert, does not always answer questions appropriatel y,no facial asymmetry, moves extremities spontaneously, mild tremor in her hands, Generally weak. Insight: Poor insight Results & Data ([facility]) Vital Signs (Past 12 Hours) Vital Signs Temp Pulse Resp BP Pulse Ox 01/23/20 07:42 36.1 C L 77 19 131/65 93 01/23/20 03:50 36.6 C 72 20 131/69 94 01/22/20 23:20 36.5 C 79 18 139/76 95 Laboratory Results 01/23/20 01/23/20 01/22/20 Range/Units 06:25 06:25 11:44 WBC 15.19 H (4.8-10.8) K/uL RBC 3.86 L (4.2-5.4) M/uL Hgb 11.9 L (12.0-16.0) g/dL Hct 34.8 L (37-47) % MCV 90.2 (80-100) fL MCH 30.8 (25-34) pg MCHC 34.2 (32-36) g/dL RDW Std Deviation 47.7 H (36.4-46.3) fL RDW Coeff of Gerardo 14.5 (11.5-14.5) % Plt Count 240 (130-400) K/uL MPV 10.1 (7.4-10.4) fL Sodium 141 (136-145) mmol/L Potassium 3.4 L (3.5-5.1) mmol/L Chloride 110 H (98-107) mmol/L Carbon Dioxide 26 (21-32) mmol/L Anion Gap 5.0 (3-11) BUN 10 (7-18) mg/dl Creatinine 0.65 (0.6-1.2) mg/dl Est Cr Clr Drug Dosing 49.4 ml/min Est GFR ( Amer) 91.9 Est GFR (Non-Af Amer) 79.3 BUN/Creatinine Ratio 15.1 (10-20) Glucose 118 H (70-99) mg/dl Calcium 8.9 (8.5-10.1) mg/dl Phosphorus 2.5 (2.5-4.9) mg/dl Magnesium 2.0 (1.8-2.4) mg/dl Total Bilirubin (0.2-1) mg/dl Direct Bilirubin (0-0.2) mg/dl AST (15-37) U/L ALT (12-78) U/L Alkaline Phosphatase (45-117) U/L Total Protein (6.4-8.2) gm/dl Albumin (3.4-5.0) gm/dl Nasal Screen MRSA (PCR) Negative (Negative) 01/22/20 Range/Units 06:22 WBC (4.8-10.8) K/uL RBC (4.2-5.4) M/uL Hgb (12.0-16.0) g/dL Hct (37-47) % MCV (80-100) fL MCH (25-34) pg MCHC (32-36) g/dL RDW Std Deviation (36.4-46.3) fL RDW Coeff of Gerardo (11.5-14.5) % Plt Count (130-400) K/uL MPV (7.4-10.4) fL Sodium (136-145) mmol/L Potassium (3.5-5.1) mmol/L Chloride (98-107) mmol/L Carbon Dioxide (21-32) mmol/L Anion Gap (3-11) BUN (7-18) mg/dl Creatinine (0.6-1.2) mg/dl Est Cr Clr Drug Dosing ml/min Est GFR ( Amer) Est GFR (Non-Af Amer) BUN/Creatinine Ratio (10-20) Glucose (70-99) mg/dl Calcium (8.5-10.1) mg/dl Phosphorus (2.5-4.9) mg/dl Magnesium (1.8-2.4) mg/dl Total Bilirubin 1.4 H (0.2-1) mg/dl Direct Bilirubin 0.2 (0-0.2) mg/dl AST 29 (15-37) U/L ALT 24 (12-78) U/L Alkaline Phosphatase 68 (45-117) U/L Total Protein 6.8 (6.4-8.2) gm/dl Albumin 3.0 L (3.4-5.0) gm/dl Nasal Screen MRSA (PCR) (Negative) Medications Administered Current Inpatient Medications Acetaminophen (Tylenol) 650 mg PO Q4H PRN PRN Reason: Pain or Fever Stop: 02/17/20 07:54 Last Admin: 01/19/20 02:34 Dose: 650 mg Documented by: Amoxicillin/Clavulanate Potassium (Augmentin 875mg) 1 tab PO BIDM [facility]; Protocol Citalopram Hydrobromide (Celexa) 20 mg PO HS [facility] Stop: 02/17/20 20:59 Last Admin: 01/22/20 20:35 Dose: 20 mg Documented by: Furosemide (Lasix) 20 mg PO QAM [facility] Stop: 02/21/20 14:59 Last Admin: 01/22/20 15:28 Dose: 20 mg Documented by: Guaifenesin (Mucinex) 600 mg PO Q12 [facility] Stop: 02/21/20 20:59 Last Admin: 01/23/20 07:22 Dose: 600 mg Documented by: Haloperidol Lactate (Haldol) 2.5 mg IM Q2H PRN PRN Reason: Agitation Stop: 02/20/20 20:14 Last Admin: 01/22/20 00:06 Dose: 2.5 mg Documented by: Hydralazine HCl (Apresoline) 10 mg PO QID PRN PRN Reason: hypertension - see label note Stop: 02/21/20 12:59 Last Admin: 01/23/20 07:23 Dose: 10 mg Documented by: Piperacillin Sod/Tazobactam (Sod 3.375 gm/ Dextrose) 115 mls @ 28.75 mls/hr IV Q8H [facility]; Protocol Stop: 01/23/20 19:59 Last Admin: 01/23/20 04:11 Dose: 28.8 mls/hr Documented by: Doxycycline Hyclate 100 mg/ (Dextrose) 110 mls @ 50 mls/hr IV BID [facility] Stop: 01/29/20 09:59 Last Infusion: 01/22/20 23:03 Dose: Infused Documented by: Ioversol (Optiray 320 125ml) 119 ml IV ONCE PRN PRN Reason: Interaction Checking Stop: 01/26/20 10:34 Last Admin: 01/22/20 10:37 Dose: 119 ml Documented by: Levetiracetam (Keppra) 250 mg PO AMHS [facility] Stop: 02/17/20 08:59 Last Admin: 01/23/20 07:22 Dose: 250 mg Documented by: Levothyroxine Sodium (Synthroid) 50 mcg PO DAILYBB [facility] Stop: 02/17/20 08:59 Last Admin: 01/23/20 06:40 Dose: 50 mcg Documented by: Lisinopril (Zestril) 5 mg PO QAM [facility] Stop: 02/17/20 08:59 Last Admin: 01/23/20 07:22 Dose: 5 mg Documented by: Lorazepam (Ativan) 1 mg PO BID [facility] Stop: 02/18/20 12:44 Last Admin: 01/23/20 07:21 Dose: 1 mg Documented by: Metoprolol Succinate (Toprol Xl) 100 mg PO QAM [facility] Stop: 02/17/20 08:59 Last Admin: 01/23/20 07:25 Dose: 100 mg Documented by: Miscellaneous Information (Consult) 1 ea N/A UD PRN PRN Reason: Consult Stop: 02/20/20 15:42 Morphine Sulfate (Morphine Sulfate) 1 mg IV Q4H PRN PRN Reason: Pain Stop: 02/01/20 07:54 Last Admin: 01/22/20 03:18 Dose: 1 mg Documented by: Nitroglycerin (Nitrostat) 0.4 mg SL UD PRN PRN Reason: Chest Pain Stop: 02/17/20 07:54 Ondansetron HCl (Zofran) 4 mg IV Q6H PRN PRN Reason: Nausea Stop: 02/17/20 07:54 Pantoprazole Sodium (Protonix) 40 mg PO DAILY [facility] Stop: 02/17/20 08:59 Last Admin: 01/23/20 07:24 Dose: 40 mg Documented by: Polyethylene Glycol (Miralax Powder Packet) 17 gm PO DAILY PRN PRN Reason: Constipation Stop: 02/17/20 07:54 Potassium Chloride (Klor-Con M20) 40 meq PO NOW STA Stop: 01/23/20 08:05 Potassium Chloride (Klor-Con M20) 40 meq PO QAM [facility] Stop: 02/22/20 13:59 (1) Closed fracture of left orbit Encounter type: initial encounter Qualified Code(s): S02.85XA - Fracture of orbit, unspecified, initial encounter for closed fracture (2) Fracture of maxillary sinus Encounter type: initial encounter Fracture type: closed Qualified Code(s): S02.401A - Maxillary fracture, unspecified side, initial encounter for closed fracture (3) Fall Encounter type: initial encounter Qualified Code(s): W19.XXXA - Unspecified fall, initial encounter (4) Laceration of eyebrow, left Encounter type: initial encounter Qualified Code(s): S01.112A - Laceration without foreign body of left eyelid and periocular area, initial encounter
[2020-01-23] MEDS: DOXYCYCLINE HYCLATE 100 MG in DEXTROSE 5% 100 ML IV SCH ×2 (10:36→20:57)
[2020-01-23] MEDS: FUROSEMIDE 20 MG TAB PO SCH (10:36)
[2020-01-23] MEDS ORDERED: FUROSEMIDE 20 MG in SYRINGE 0 ML IV ONE (13:00)
[2020-01-23] MEDS: POTASSIUM CHLORIDE 20 MEQ TABCR PO SCH (14:15)
[2020-01-23] MEDS: CITALOPRAM 20 MG TAB PO SCH (20:57)
[2020-01-24] MEDS ORDERED: DiphenhydrAMINE HCL 50 MG/ML VIAL IV STA (01:31)
[2020-01-24] MEDS ORDERED: DiphenhydrAMINE 2%/ZINC 0.1% CREAM 28GM TUBE EXT PRN (01:31)
[2020-01-24] MEDS: LEVOTHYROXINE SODIUM 50 MCG TABLET PO SCH (06:24)
[2020-01-24 07:01] LABS: Hematocrit (blood only) 42.5 % (37-47); Hemoglobin 14.2 g/dL (12.0-16.0); Mean Corpuscular Hemoglobin 30.5 pg (25-34); Mean Corpuscular Hgb Conc 33.4 g/dL (32-36); Mean Corpuscular Volume 91.2 fL (80-100); Mean Platelet Volume 10.3 fL (7.4-10.4); Platelet Count 245 K/uL (130-400); RDW Coefficient of Variation 14.5 % (11.5-14.5); RDW Standard Deviation 48.3 fL (36.4-46.3); Red Blood Count 4.66 M/uL (4.2-5.4); White Blood Count 15.38 K/uL (4.8-10.8)
[2020-01-24 07:35] LABS: BUN Creatinine Ratio 14.5 (10-20); Calcium 9.3 mg/dl (8.5-10.1); Est GFR (Non-African American) 78.5; Magnesium 1.9 mg/dl (1.8-2.4); Potassium 3.3 mmol/L (3.5-5.1)
[2020-01-24] MEDS: POTASSIUM CHLORIDE 20 MEQ TABCR PO SCH ×2 (07:57→09:04)
[2020-01-24] MEDS: levETIRAcetam 250 MG TAB PO SCH ×3 (07:57→20:40)
[2020-01-24] MEDS: PANTOprazole 40 MG TAB PO SCH ×2 (07:57→09:04)
[2020-01-24] MEDS: guaiFENesin 600 MG TABCR PO SCH ×3 (07:57→20:40)
[2020-01-24] MEDS: FUROSEMIDE 20 MG TAB PO SCH (07:57)
[2020-01-24] MEDS: DOXYCYCLINE HYCLATE 100 MG in DEXTROSE 5% 100 ML IV SCH ×2 (07:58→20:36)
[2020-01-24] MEDS: LORazepam 1 MG TAB PO SCH ×2 (07:58→20:39)
[2020-01-24] MEDS: METOPROLOL SUCC 50MG EXT REL TAB PO SCH ×2 (07:58→09:04)
[2020-01-24] MEDS: lisinopriL 5 MG TAB PO SCH (07:58)
[2020-01-24] MEDS ORDERED: POTASSIUM CHLORIDE 20 MEQ TABCR PO STA (08:41)
--- NOTE | 2020-01-24 09:22 | Hospitalist Progress Note ---
Date of Service January 24, 2020 Assessment & Plan (1) Closed fracture of left orbit: Complex fracture left facial region Status post mechanical fall CT of the face showed inferior displacement of the fracture of the left inferior orbital margin and nondisplaced fracture lateral wall of left orbit Has periorbital ecchymosis and laceration over left upper area No visual abnormality, no subconjunctival hemorrhage Eye movement is minimally painful This was discussed with the batter scaler and Dr. Tracy (prior hospitalist) and was advised that there is no imminent requirement for any ophthalmologic evaluation Periorbital bruising is much better and there is no visual impairment on examination If there is any problem she will need to see an batter scaler down the line (2) Fracture of maxillary sinus: Fracture of the anterior left maxillary sinus wall with moderate posterior displacement of 3mm, and associated nasal bones noted following the fall Had significant pain there and swelling on admission Currently denies any pain, comfortable Orofacial surgery has been consulted - no surg. intervention planned Appreciate orofacial surgery input and recommendation - no surg. intervention planned Conservative management (3) Fall: Likely mechanical secondary to ambulatory dysfunction We will get PT and OT evaluation-PT OT recommended rehab/SNF Awaiting placement (4) Laceration of eyebrow, left: As above Has been getting better (5) Ambulatory dysfunction: Multifactorial osteoarthritis, deteriorating general health and is complicated by dementia PT and OT evaluation before discharge As before (6) Hypertension: BP noted to be elevated, now well controlled - likely d/t agitation, as pt gets confused and agitated - possibly d/t pain - Continue current medications, lisinopril and metoprolol succinate - added amlodipine - pt was on IV fluid, now stopped - will cont. to monitor - pain control Tachycardia - often secondary to agitation however PE was not ruled out on admission and pt presented with fall, on admission it was believed to be mechanical in origin - new findings on CXR, will obtain chest CT and will eval for poss. PE - CTA negative for PE, noted pl. effusions on CT chest Elevated troponin - very mildly elevated trop. noted likely secondary to above (hypertension) in the setting of urinary retention, recent fall - pt denies any chest pain, not likely ACS, more likely demand ischemia from significant hypertension etc. - Echo ordered - EF 60-65%, LV normal in size, no LV wall motion abnormality, mild conc. LVH, trace MR, trace TR, mild AR, RV syst. pressure mod. elevated at 40-50 Leukocytosis elevated WBC and was trending up, now improved - likely reactive from recent fall, facial bone fractures, etc., however concern for underlying infection is high (pt has not had any fever though) - pt was on Augmentin to prevent infection from sinusitis given fractures as above, but she was not taking her medications - will eval other poss. causes for elevated WBC (UA, blood cltx, CXR), UA negative, blood cltx - pending, CXR - prob.developing mild pulm. edema, atelectesis vs. pneumonitis - switched to IV zosyn from PO augmentin, cont. IV Abx - added doxycycline, cont. - will obtain nasal swab for MRSA - will consult ID for further recs - no further recommendations, no signs of infx at this time, likely secondary to fall, blood cltx - pending - will gently diurese to eliminate pl. effusions - cont. to monitor Electrolyte abnormalities - cont. to replete and monitor K, Mg, Phos as needed - goal K>4, goal Mg>2 (7) Hypothyroid: Continue supplement (8) Depression: (9) Dementia: Pt gets confused and agitated at times (usually at night time), often able to be re-oriented during the day DVT prophylaxis SCDs CODE STATUS Full Discussed with the son in detail on admission Dispo: plan to d/c to [facility] when medically stable Admission and Anticipated Discharge Date Admission Date: January 20, 2020 Anticipated date of discharge: 01/20/20 Subjective Pt is sitting up in bed, holding a doll. Currently has no complaints, no chest pain, shortness of breath, abd. pain, nausea or vomiting. Encouraged boost intake. However pt has dementia needs to reminded again, talked nursing staff. Review of Systems Review of Systems: All systems reviewed and are unremarkable except as noted below However due to dementia, difficult to obtain proper ROS Eyes: Has left periorbital bruising with skin laceration involving the upper left corner. Does not have any abnormalities in vision and eye movement Physical Exam Physical Exam: Physical Exam: Elderly female sitting up in bed in NAD Constitutional: + ill appearing and + thin Eyes: + eyelid abnormality (Periorbital bruising with left upper eye skin laceration) Periorbital ecchymosis/bruising and swelling have been getting better ENMT: external ear and nose normal, oropharynx normal Swelling and minimal tenderness noted over left maxillary bone area Respiratory: no respiratory distress Auscultation: + diminished lung sounds and + bibasilar crackles Cardiovascular: Rate/Rhythm: regular rate and regular rhythm, no murmurs noted Gastrointestinal (Abdomen): Inspection/Auscultation: abdomen normal to inspection and normal bowel sounds Musculoskeletal: No acute arthritis, moves extremities spontaneously Neuro/ Psych: awake and alert, does not always answer questions appropriately,no facial asymmetry, moves extremities spontaneously, mild tremor in her hands, Generally weak. Insight: Poor insight Results & Data ([facility]) Vital Signs (Past 12 Hours) Vital Signs Temp Pulse Pulse Resp BP Pulse Ox 01/24/20 07:29 61 01/24/20 07:16 36.5 C 73 18 148/70 H 91 01/24/20 03:12 36.6 C 64 20 151/66 H 93 01/23/20 23:15 36.7 C 89 18 144/74 H 96 Laboratory Results 01/24/20 01/24/20 01/24/20 Range/Units 06:44 06:44 06:44 WBC 15.38 H (4.8-10.8) K/uL RBC 4.66 (4.2-5.4) M/uL Hgb 14.2 (12.0-16.0) g/dL Hct 42.5 (37-47) % MCV 91.2 (80-100) fL MCH 30.5 (25-34) pg MCHC 33.4 (32-36) g/dL RDW Std Deviation 48.3 H (36.4-46.3) fL RDW Coeff of Gerardo 14.5 (11.5-14.5) % Plt Count 245 (130-400) K/uL MPV 10.3 (7.4-10.4) fL Sodium 141 (136-145) mmol/L Potassium 3.3 L (3.5-5.1) mmol/L Chloride 107 (98-107) mmol/L Carbon Dioxide 28 (21-32) mmol/L Anion Gap 6.0 (3-11) BUN 10 (7-18) mg/dl Creatinine 0.67 (0.6-1.2) mg/dl Est Cr Clr Drug Dosing 48.0 ml/min Est GFR ( Amer) 91.0 Est GFR (Non-Af Amer) 78.5 BUN/Creatinine Ratio 14.5 (10-20) Glucose 106 H (70-99) mg/dl Calcium 9.3 (8.5-10.1) mg/dl Phosphorus 3.0 (2.5-4.9) mg/dl Magnesium 1.9 (1.8-2.4) mg/dl Medications Administered Current Inpatient Medications Acetaminophen (Tylenol) 650 mg PO Q4H PRN PRN Reason: Pain or Fever Stop: 02/17/20 07:54 Last Admin: 01/19/20 02:34 Dose: 650 mg Documented by: Amoxicillin/Clavulanate Potassium (Augmentin 875mg) 1 tab PO BIDM [facility]; Protocol Citalopram Hydrobromide (Celexa) 20 mg PO HS [facility] Stop: 02/17/20 20:59 Last Admin: 01/23/20 20:57 Dose: 20 mg Documented by: Guaifenesin (Mucinex) 600 mg PO Q12 [facility] Stop: 02/21/20 20:59 Last Admin: 01/24/20 09:04 Dose: Not Given Documented by: Haloperidol Lactate (Haldol) 2.5 mg IM Q2H PRN PRN Reason: Agitation Stop: 02/20/20 20:14 Last Admin: 01/22/20 00:06 Dose: 2.5 mg Documented by: Hydralazine HCl (Apresoline) 10 mg PO QID PRN PRN Reason: hypertension - see label note Stop: 02/21/20 12:59 Last Admin: 01/23/20 07:23 Dose: 10 mg Documented by: Doxycycline Hyclate 100 mg/ (Dextrose) 110 mls @ 50 mls/hr IV BID [facility] Stop: 01/29/20 09:59 Last Admin: 01/24/20 07:58 Dose: 50 mls/hr Documented by: Potassium Chloride (K Justo / Wtr) 10 meq in 100 mls @ 100 mls/hr IV Q1H [facility] Stop: 01/24/20 10:19 Ioversol (Optiray 320 125ml) 119 ml IV ONCE PRN PRN Reason: Interaction Checking Stop: 01/26/20 10:34 Last Admin: 01/22/20 10:37 Dose: 119 ml Documented by: [facility] ([facility]) [facility] Stop: 02/17/20 08:59 Last Admin: 01/24/20 09:04 Dose: Not Given Documented by: Levothyroxine Sodium (Synthroid) 50 mcg PO DAILYBB [facility] Stop: 02/17/20 08:59 Last Admin: 01/24/20 06:24 Dose: 50 mcg Documented by: [facility]inop[facility] ([facility]est[facility]) [facility] Stop: 02/17/20 08:59 Last Admin: 01/24/20 07:58 Dose: 5 mg Documented by: Lorazepam (Ativan) 1 mg PO BID [facility] Stop: 02/18/20 12:44 Last Admin: 01/24/20 07:58 Dose: 1 mg Documented by: Metoprolol Succinate (Toprol Xl) 100 mg PO [facility] Stop: 02/17/20 08:59 Last Admin: 01/24/20 09:04 Dose: Not Given Documented by: Miscellaneous Information (Consult) 1 ea N/A UD PRN PRN Reason: Consult Stop: 02/20/20 15:42 Morphine Sulfate (Morphine Sulfate) 1 mg IV Q4H PRN PRN Reason: Pain Stop: 02/01/20 07:54 Last Admin: 01/22/20 03:18 Dose: 1 mg Documented by: Nitroglycerin (Nitrostat) 0.4 mg UD PRN PRN Reason: Chest Pain Stop: 02/17/20 07:54 Ondansetron HCl (Zofran) 4 mg IV Q6H PRN PRN Reason: Nausea Stop: 02/17/20 07:54 Pantoprazole Sodium (Protonix) 40 mg PO DAILY [facility] Stop: 02/17/20 08:59 Last Admin: 01/24/20 09:04 Dose: Not Given Documented by: Polyethylene Glycol (Miralax Powder Packet) 17 gm PO DAILY PRN PRN Reason: Constipation Stop: 02/17/20 07:54 Potassium Chloride (Klor-Con M20) 40 meq PO QAM [facility] Stop: 02/22/20 13:59 Last Admin: 01/24/20 09:04 Dose: Not Given Documented by: Potassium Chloride (Klor-Con M20) 40 meq PO ONE ONE Stop: 01/24/20 13:01 Zinc Acetate/Diphenhydramine (Benadryl Extra Strength) 1 appln EXT QID PRN PRN Reason: itchy skin Stop: 02/23/20 01:30 (1) Closed fracture of left orbit Encounter type: initial encounter Qualified Code(s): S02.85XA - Fracture of orbit, unspecified, initial encounter for closed fracture (2) Fracture of maxillary sinus Encounter type: initial encounter Fracture type: closed Qualified Code(s): S02.401A - Maxillary fracture, unspecified side, initial encounter for closed fracture (3) Fall Encounter type: initial encounter Qualified Code(s): W19.XXXA - Unspecified fall, initial encounter (4) Laceration of eyebrow, left Encounter type: initial encounter Qualified Code(s): S01.112A - Laceration without foreign body of left eyelid and periocular area, initial encounter
[2020-01-24] MEDS: POTASSIUM CHLORIDE / WTR 10 MEQ/100 ML PLCT IV SCH ×4 (09:59→13:58)
[2020-01-24] MEDS ORDERED: POTASSIUM CHLORIDE 20 MEQ TABCR PO ONE (13:00)
[2020-01-24] MEDS: CITALOPRAM 20 MG TAB PO SCH (20:40)
[2020-01-25] MEDS: LEVOTHYROXINE SODIUM 50 MCG TABLET PO SCH (06:37)
[2020-01-25 07:32] LABS: Hematocrit (blood only) 39.4 % (37-47); Hemoglobin 13.1 g/dL (12.0-16.0); Mean Corpuscular Hemoglobin 30.3 pg (25-34); Mean Corpuscular Hgb Conc 33.2 g/dL (32-36); Mean Platelet Volume 10.2 fL (7.4-10.4); Platelet Count 260 K/uL (130-400); RDW Coefficient of Variation 14.4 % (11.5-14.5); RDW Standard Deviation 48.5 fL (36.4-46.3); Red Blood Count 4.33 M/uL (4.2-5.4); White Blood Count 13.54 K/uL (4.8-10.8)
[2020-01-25 08:03] LABS: BUN Creatinine Ratio 25.3 (10-20); Calcium 9.4 mg/dl (8.5-10.1); Creatinine Clr Calc Pharmacy 58.7 ml/min; Est GFR (African American) 97.1; Est GFR (Non-African American) 83.7; Magnesium 1.7 mg/dl (1.8-2.4); Potassium 3.5 mmol/L (3.5-5.1)
[2020-01-25 08:07] LABS: Phosphorus 3.8 mg/dl (2.5-4.9)
[2020-01-25] MEDS ORDERED: PIPERACILLIN/TAZOBACTAM 3.375 GM in DEXTROSE 5% 100 ML IV ONE (08:30)
[2020-01-25] MEDS: LORazepam 1 MG TAB PO SCH ×2 (08:44→21:24)
[2020-01-25] MEDS: PANTOprazole 40 MG TAB PO SCH (08:44)
[2020-01-25] MEDS: POTASSIUM CHLORIDE 20 MEQ TABCR PO SCH (08:44)
[2020-01-25] MEDS: METOPROLOL SUCC 50MG EXT REL TAB PO SCH (08:44)
[2020-01-25] MEDS: levETIRAcetam 250 MG TAB PO SCH ×2 (08:44→21:24)
[2020-01-25] MEDS: guaiFENesin 600 MG TABCR PO SCH ×2 (08:44→21:25)
[2020-01-25] MEDS: DOXYCYCLINE HYCLATE 100 MG in DEXTROSE 5% 100 ML IV SCH ×2 (08:45→21:26)
[2020-01-25] MEDS: lisinopriL 5 MG TAB PO SCH (08:45)
--- NOTE | 2020-01-25 09:28 | Hospitalist Progress Note ---
Date of Service January 25, 2020 Assessment & Plan (1) Closed fracture of left orbit: Complex fracture left facial region Status post mechanical fall CT of the face showed inferior displacement of the fracture of the left inferior orbital margin and nondisplaced fracture lateral wall of left orbit Has periorbital ecchymosis and laceration over left upper area No visual abnormality, no subconjunctival hemorrhage Eye movement is minimally painful This was discussed with the admission nurse coordinator and Dr. Tracy (prior hospitalist) and was advised that there is no imminent requirement for any ophthalmologic evaluation Periorbital bruising is much better and there is no visual impairment on examination If there is any problem she will need to see an admission nurse coordinator down the line (2) Fracture of maxillary sinus: Fracture of the anterior left maxillary sinus wall with moderate posterior displacement of 3mm, and associated nasal bones noted following the fall Had significant pain there and swelling on admission Currently denies any pain, comfortable Orofacial surgery has been consulted - no surg. intervention planned Appreciate orofacial surgery input and recommendation - no surg. intervention planned Conservative management (3) Fall: Likely mechanical secondary to ambulatory dysfunction We will get PT and OT evaluation-PT OT recommended rehab/SNF Awaiting placement (4) Laceration of eyebrow, left: As above Has been getting better (5) Ambulatory dysfunction: Multifactorial osteoarthritis, deteriorating general health and is complicated by dementia PT and OT evaluation before discharge As before (6) Hypertension: BP noted to be elevated, now well controlled - likely d/t agitation, as pt gets confused and agitated - possibly d/t pain - Continue current medications, lisinopril and metoprolol succinate - added amlodipine - pt was on IV fluid, now stopped - will cont. to monitor - pain control Tachycardia - often secondary to agitation however PE was not ruled out on admission and pt presented with fall, on admission it was believed to be mechanical in origin - new findings on CXR, will obtain chest CT and will eval for poss. PE - CTA negative for PE, noted pl. effusions on CT chest Elevated troponin - very mildly elevated trop. noted likely secondary to above (hypertension) in the setting of urinary retention, recent fall - pt denies any chest pain, not likely ACS, more likely demand ischemia from significant hypertension etc. - Echo ordered - EF 60-65%, LV normal in size, no LV wall motion abnormality, mild conc. LVH, trace MR, trace TR, mild AR, RV syst. pressure mod. elevated at 40-50 Leukocytosis elevated WBC and was trending up, now improved - likely reactive from recent fall, facial bone fractures, etc., however concern for underlying infection is high (pt has not had any fever though) - pt was on Augmentin to prevent infection from sinusitis given fractures as above, but she was not taking her medications - will eval other poss. causes for elevated WBC (UA, blood cltx, CXR), UA negative, blood cltx - pending, CXR - prob.developing mild pulm. edema, atelectesis vs. pneumonitis - switched to IV zosyn from PO augmentin, cont. IV Abx - added doxycycline, cont. - will obtain nasal swab for MRSA - will consult ID for further recs - no further recommendations, no signs of infx at this time, likely secondary to fall, blood cltx - NGTD - will gently diurese to eliminate pl. effusions - cont. to monitor Electrolyte abnormalities - cont. to replete and monitor K, Mg, Phos as needed - goal K>4, goal Mg>2 (7) Hypothyroid: Continue supplement (8) Depression: (9) Dementia: Pt gets confused and agitated at times (usually at night time), often able to be re-oriented during the day DVT prophylaxis SCDs CODE STATUS Full Discussed with the son in detail on admission Dispo: plan to d/c to [facility] when medically stable Admission and Anticipated Discharge Date Admission Date: January 20, 2020 Anticipated date of discharge: 01/20/20 Subjective Pt is sitting up in bed, holding a doll. Currently has no complaints, no chest pain, shortness of breath, abd. pain, nausea or vomiting. She does not answers questions appropriately, d/t dementia. Encouraged boost intake. Needs to be reminded again, she has poor PO intake if not encouraged and reminded, talked to nursing staff. Review of Systems 2 Review of Systems: All systems reviewed and are unremarkable except as noted below However due to dementia, difficult to obtain proper ROS Eyes: Has left periorbital bruising with skin laceration involving the upper left corner. Does not have any abnormalities in vision and eye movement Physical Exam Physical Exam: Physical Exam: Elderly female sitting up in bed in NAD Constitutional: + ill appearing and + thin Eyes: + eyelid abnormality (Periorbital bruising with left upper eye skin laceration) Periorbital ecchymosis/bruising and swelling have been getting better ENMT: external ear and nose normal, oropharynx normal Swelling and minimal tenderness noted over left maxillary bone area Respiratory: no respiratory distress Auscultation: + diminished lung sounds and + bibasilar crackles Cardiovascular: Rate/Rhythm: regular rate and regular rhythm, no murmurs noted Gastrointestinal (Abdomen): Inspection/Auscultation: abdomen normal to inspection and normal bowel sounds Musculoskeletal: No acute arthritis, moves extremities spontaneously Neuro/ Psych: awake and alert, does not always answer questions appropriately,no facial asymmetry, moves extremities spontaneously, mild tremor in her hands, Generally weak. Insight: Poor insight Results & Data ([facility]) Vital Signs (Past 12 Hours) Vital Signs Temp Pulse Resp BP Pulse Ox 01/25/20 05:01 37.0 C 80 20 154/82 H 94 01/25/20 00:28 36.7 C 90 20 166/80 H 93 Laboratory Results 01/25/20 01/25/20 Range/Units 07:02 07:02 WBC 13.54 H (4.8-10.8) K/uL RBC 4.33 (4.2-5.4) M/uL Hgb 13.1 (12.0-16.0) g/dL Hct 39.4 (37-47) % MCV 91.0 (80-100) fL MCH 30.3 (25-34) pg MCHC 33.2 (32-36) g/dL RDW Std Deviation 48.5 H (36.4-46.3) fL RDW Coeff of Gerardo 14.4 (11.5-14.5) % Plt Count 260 (130-400) K/uL MPV 10.2 (7.4-10.4) fL Sodium 138 (136-145) mmol/L Potassium 3.5 (3.5-5.1) mmol/L Chloride 106 (98-107) mmol/L Carbon Dioxide 25 (21-32) mmol/L Anion Gap 7.0 (3-11) BUN 14 (7-18) mg/dl Creatinine 0.55 L (0.6-1.2) mg/dl Est Cr Clr Drug Dosing 58.7 ml/min Est GFR ( Amer) 97.1 Est GFR (Non-Af Amer) 83.7 BUN/Creatinine Ratio 25.3 H (10-20) Glucose 106 H (70-99) mg/dl Calcium 9.4 (8.5-10.1) mg/dl Phosphorus 3.8 (2.5-4.9) mg/dl Magnesium 1.7 L (1.8-2.4) mg/dl Medications Administered Current Inpatient Medications Acetaminophen (Tylenol) 650 mg PO Q4H PRN PRN Reason: Pain or Fever Stop: 02/17/20 07:54 Last Admin: 01/19/20 02:34 Dose: 650 mg Documented by: Amoxicillin/Clavulanate Potassium (Augmentin 875mg) 1 tab PO BIDM [facility]; Protocol Citalopram Hydrobromide (Celexa) 20 mg PO HS [facility] Stop: 02/17/20 20:59 Last Admin: 01/24/20 20:40 Dose: 20 mg Documented by: Guaifenesin (Mucinex) 600 mg PO Q12 [facility] Stop: 02/21/20 20:59 Last Admin: 01/25/20 08:44 Dose: 600 mg Documented by: Haloperidol Lactate (Haldol) 2.5 mg IM Q2H PRN PRN Reason: Agitation Stop: 02/20/20 20:14 Last Admin: 01/22/20 00:06 Dose: 2.5 mg Documented by: Hydralazine HCl (Apresoline) 10 mg PO QID PRN PRN Reason: hypertension - see label note Stop: 02/21/20 12:59 Last Admin: 01/23/20 07:23 Dose: 10 mg Documented by: Doxycycline Hyclate 100 mg/ (Dextrose) 110 mls @ 50 mls/hr IV BID [facility] Stop: 01/29/20 09:59 Last Admin: 01/25/20 08:45 Dose: 50 mls/hr Documented by: Piperacillin Sod/Tazobactam (Sod 3.375 gm/ Dextrose) 115 mls @ 28.75 mls/hr IV Q8H [facility]; Protocol Stop: 01/27/20 13:59 Ioversol (Optiray 320 125ml) 119 ml IV ONCE PRN PRN Reason: Interaction Checking Stop: 01/26/20 10:34 Last Admin: 01/22/20 10:37 Dose: 119 ml Documented by: Levetiracetam (Keppra) 250 mg PO AMHS [facility] Stop: 02/17/20 08:59 Last Admin: 01/25/20 08:44 Dose: 250 mg Documented by: Levothyroxine Sodium (Synthroid) 50 mcg PO DAILYBB [facility] Stop: 02/17/20 08:59 Last Admin: 01/25/20 06:37 Dose: 50 mcg Documented by: Lisinopril (Zestril) [facility] Stop: 02/17/20 08:59 Last Admin: 01/25/20 08:45 Dose: 5 mg Documented by: Lorazepam (Ativan) 1 mg PO BID [facility] Stop: 02/18/20 12:44 Last Admin: 01/25/20 08:44 Dose: 1 mg Documented by: Metoprolol Succinate (Toprol Xl) 100 mg PO [facility] Stop: 02/17/20 08:59 Last Admin: 01/25/20 08:44 Dose: 100 mg Documented by: Miscellaneous Information (Consult) 1 ea N/A UD PRN PRN Reason: Consult Stop: 02/20/20 15:42 Morphine Sulfate (Morphine Sulfate) 1 mg IV Q4H PRN PRN Reason: Pain Stop: 02/01/20 07:54 Last Admin: 01/22/20 03:18 Dose: 1 mg Documented by: Nitroglycerin (Nitrostat) 0.4 mg UD PRN PRN Reason: Chest Pain Stop: 02/17/20 07:54 Ondansetron HCl (Zofran) 4 mg IV Q6H PRN PRN Reason: Nausea Stop: 02/17/20 07:54 Pantoprazole Sodium (Protonix) 40 mg PO DAILY [facility] Stop: 02/17/20 08:59 Last Admin: 01/25/20 08:44 Dose: 40 mg Documented by: Polyethylene Glycol (Miralax Powder Packet) 17 gm PO DAILY PRN PRN Reason: Constipation Stop: 02/17/20 07:54 Potassium Chloride (Klor-Con M20) 40 meq PO QAM [facility] Stop: 02/22/20 13:59 Last Admin: 01/25/20 08:44 Dose: 40 meq Documented by: Zinc Acetate/Diphenhydramine (Benadryl Extra Strength) 1 appln EXT QID PRN PRN Reason: itchy skin Stop: 02/23/20 01:30 Last Admin: 01/24/20 18:28 Dose: 1 appln Documented by: (1) Fracture of maxillary sinus Encounter type: initial encounter Fracture type: closed Qualified Code(s): S02.401A - Maxillary fracture, unspecified side, initial encounter for closed fracture (2) Fall Encounter type: initial encounter Qualified Code(s): W19.XXXA - Unspecified fall, initial encounter (3) Closed fracture of left orbit Encounter type: initial encounter Qualified Code(s): S02.85XA - Fracture of orbit, unspecified, initial encounter for closed fracture (4) Laceration of eyebrow, left Encounter type: initial encounter Qualified Code(s): S01.112A - Laceration without foreign body of left eyelid and periocular area, initial encounter
[2020-01-25] MEDS ORDERED: POTASSIUM CHLORIDE 20 MEQ TABCR PO STA (09:29)
[2020-01-25] MEDS ORDERED: MAGNESIUM SULFATE / D5W 1 GM/100 ML BAG IV ONE (09:29)
[2020-01-25] MEDS ORDERED: FUROSEMIDE 20 MG in SYRINGE 0 ML IV ONE (11:30)
[2020-01-25] MEDS: PIPERACILLIN/TAZOBACTAM 3.375 GM in DEXTROSE 5% 100 ML IV SCH ×2 (13:07→21:22)
[2020-01-25] MEDS ORDERED: POTASSIUM CHLORIDE 20 MEQ TABCR PO SCH (14:00)
[2020-01-25] MEDS: CITALOPRAM 20 MG TAB PO SCH (21:25)
[2020-01-26] MEDS: PIPERACILLIN/TAZOBACTAM 3.375 GM in DEXTROSE 5% 100 ML IV SCH ×3 (06:09→23:33)
[2020-01-26 07:21] LABS: Hematocrit (blood only) 42.9 % (37-47); Hemoglobin 14.3 g/dL (12.0-16.0); Mean Corpuscular Hemoglobin 30.1 pg (25-34); Mean Corpuscular Hgb Conc 33.3 g/dL (32-36); Mean Corpuscular Volume 90.3 fL (80-100); Mean Platelet Volume 10.1 fL (7.4-10.4); Platelet Count 279 K/uL (130-400); RDW Coefficient of Variation 14.2 % (11.5-14.5); RDW Standard Deviation 46.8 fL (36.4-46.3); Red Blood Count 4.75 M/uL (4.2-5.4); White Blood Count 15.81 K/uL (4.8-10.8)
[2020-01-26 07:40] LABS: Creatinine Clr Calc Pharmacy 39.9 ml/min; Est GFR (African American) 75.2; Est GFR (Non-African American) 64.8
[2020-01-26] MEDS: LEVOTHYROXINE SODIUM 50 MCG TABLET PO SCH (08:03)
[2020-01-26] MEDS: LORazepam 1 MG TAB PO SCH ×2 (09:03→21:45)
[2020-01-26] MEDS: POTASSIUM CHLORIDE 20 MEQ TABCR PO SCH (09:04)
[2020-01-26] MEDS: guaiFENesin 600 MG TABCR PO SCH ×2 (09:04→21:45)
[2020-01-26] MEDS: levETIRAcetam 250 MG TAB PO SCH ×2 (09:04→21:45)
[2020-01-26] MEDS: PANTOprazole 40 MG TAB PO SCH (09:04)
[2020-01-26] MEDS: METOPROLOL SUCC 50MG EXT REL TAB PO SCH (09:07)
[2020-01-26] MEDS: lisinopriL 5 MG TAB PO SCH (09:07)
[2020-01-26] MEDS: DOXYCYCLINE HYCLATE 100 MG in DEXTROSE 5% 100 ML IV SCH ×2 (09:12→21:26)
--- NOTE | 2020-01-26 12:00 | XRay Report ---
XR chest 1V portable HISTORY: Abnormal chest x-ray. Follow-up. COMPARISON: Chest 01/21/2020. FINDINGS: No pneumothorax. Small bilateral pleural effusions and bibasilar densities have improved. T he heart is normal in size. Pulmonary edema has essentially resolved in the interval. IMPRESSION: 1. Interval resolution of the pulmonary edema. 2. Small bilateral pleural effusions and bibasilar densities have also improved. ACT 112: Negative or not required by law. Electronically signed by: Everett Lorenzana M.D. 01/26/2020 11:58 AM
[2020-01-26 12:08] LABS: BUN Creatinine Ratio 27.3 (10-20); Calcium 9.7 mg/dl (8.5-10.1); Est GFR (African American) 79.9; Est GFR (Non-African American) 68.9
[2020-01-26] MEDS ORDERED: LORazepam 0.5 MG TAB PO PRN (15:05)
--- NOTE | 2020-01-26 20:34 | Hospitalist Progress Note ---
Date of Service January 26, 2020 Assessment & Plan (1) Closed fracture of left orbit: Complex fracture left facial region Status post mechanical fall CT of the face showed inferior displacement of the fracture of the left inferior orbital margin and nondisplaced fracture lateral wall of left orbit Has periorbital ecchymosis and laceration over left upper area No visual abnormality, no subconjunctival hemorrhage Eye movement is minimally painful This was discussed with the refuge manager and Dr. Tracy (prior hospitalist) and was advised that there is no imminent requirement for any ophthalmologic evaluation Periorbital bruising is much better and there is no visual impairment on examination If there is any problem she will need to see an refuge manager down the line (2) Fracture of maxillary sinus: Fracture of the anterior left maxillary sinus wall with moderate posterior displacement of 3mm, and associated nasal bones noted following the fall Had significant pain there and swelling on admission Currently denies any pain, comfortable Orofacial surgery has been consulted - no surg. intervention planned Appreciate orofacial surgery input and recommendation - no surg. intervention planned Conservative management (3) Fall: Likely mechanical secondary to ambulatory dysfunction We will get PT and OT evaluation-PT OT recommended rehab/SNF Awaiting placement (4) Laceration of eyebrow, left: As above Has been getting better (5) Ambulatory dysfunction: Multifactorial osteoarthritis, deteriorating general health and is complicated by dementia PT and OT evaluation before discharge As before (6) Hypertension: BP noted to be elevated, now well controlled - likely d/t agitation, as pt gets confused and agitated - possibly d/t pain - Continue current medications, lisinopril and metoprolol succinate - added amlodipine - pt was on IV fluid, now stopped - will cont. to monitor - pain control Tachycardia - often secondary to agitation however PE was not ruled out on admission and pt presented with fall, on admission it was believed to be mechanical in origin - new findings on CXR, will obtain chest CT and will eval for poss. PE - CTA negative for PE, noted pl. effusions on CT chest Elevated troponin - very mildly elevated trop. noted likely secondary to above (hypertension) in the setting of urinary retention, recent fall - pt denies any chest pain, not likely ACS, more likely demand ischemia from significant hypertension etc. - Echo ordered - EF 60-65%, LV normal in size, no LV wall motion abnormality, mild conc. LVH, trace MR, trace TR, mild AR, RV syst. pressure mod. elevated at 40-50 Leukocytosis elevated WBC and was trending up, now improved - likely reactive from recent fall, facial bone fractures, etc., however concern for underlying infection is high (pt has not had any fever though) - pt was on Augmentin to prevent infection from sinusitis given fractures as above, but she was not taking her medications - will eval other poss. causes for elevated WBC (UA, blood cltx, CXR), UA negative, blood cltx - pending, CXR - prob.developing mild pulm. edema, atelectesis vs. pneumonitis - switched to IV zosyn from PO augmentin, cont. IV Abx - added doxycycline, cont. - will obtain nasal swab for MRSA - will consult ID for further recs - no further recommendations, no signs of infx at this time, likely secondary to fall, blood cltx - NGTD - will gently diurese to eliminate pl. effusions - cont. to monitor Electrolyte abnormalities - cont. to replete and monitor K, Mg, Phos as needed - goal K>4, goal Mg>2 (7) Hypothyroid: Continue supplement (8) Depression: (9) Dementia: Pt gets confused and agitated at times (usually at night time), often able to be re-oriented during the day DVT prophylaxis SCDs CODE STATUS Full Discussed with the son in detail on admission Dispo: plan to d/c to [facility] when medically stable Admission and Anticipated Discharge Date Admission Date: January 20, 2020 Anticipated date of discharge: 01/20/20 Subjective Pt is sitting up in bed, holding a doll. Currently has no complaints, no chest pain, shortness of breath, abd. pain, nausea or vomiting. She does not always answers questions appropriately, d/t dementia. Encouraged boost intake. Needs to be reminded again, she tends to have poor PO intake if not encouraged and reminded, talked to nursing staff. Also, pt on ativan 1mg bid as per home, will keep 1mg in the evening, but will make AM ativan 0.5mg PRN. Review of Systems Review of Systems: All systems reviewed and are unremarkable except as noted below However due to dementia, difficult to obtain proper ROS Eyes: Has left periorbital bruising with skin laceration involving the upper left corner. Does not have any abnormalities in vision and eye movement Physical Exam Physical Exam: Physical Exam: Elderly female sitting up in bed in [facility] Constitutional: + ill appearing and + thin Eyes: + eyelid abnormality (Periorbital bruising with left upper eye skin laceration) Periorbital ecchymosis/bruising and swelling have been getting better ENMT: external ear and nose normal, oropharynx normal Swelling and minimal tenderness noted over left maxillary bone area Respiratory: no respiratory distress Auscultation: CTAB but lung sounds somewhat diminished, mild bibasilar crackles (improved) Cardiovascular: Rate/Rhythm: regular rate and regular rhythm, no murmurs noted Gastrointestinal (Abdomen): Inspection/Auscultation: abdomen normal to inspection and normal bowel sounds, nontender, nondistended Musculoskeletal: No acute arthritis, moves extremities spontaneously, no LE edema Neuro/ Psych: awake and alert, does not always answer questions appropriately,no facial asymmetry, moves extremities spontaneously, mild tremor in her hands, Generally weak. Insight: Poor insight Results & Data ([facility]) Vital Signs (Past 12 Hours) Vital Signs Temp Pulse Resp BP Pulse Ox 01/26/20 15:19 36.4 C L 86 16 94 01/26/20 15:08 120/70 Laboratory Results 01/26/20 01/26/20 01/26/20 Range/Units 07:07 07:00 07:00 WBC 15.81 H (4.8-10.8) K/uL RBC 4.75 (4.2-5.4) M/uL Hgb 14.3 (12.0-16.0) g/dL Hct 42.9 (37-47) % MCV 90.3 (80-100) fL MCH 30.1 (25-34) pg MCHC 33.3 (32-36) g/dL RDW Std Deviation 46.8 H (36.4-46.3) fL RDW Coeff of Gerardo 14.2 (11.5-14.5) % Plt Count 279 (130-400) K/uL MPV 10.1 (7.4-10.4) fL Sodium 137 (136-145) mmol/L Potassium 4.0 (3.5-5.1) mmol/L Chloride 105 (98-107) mmol/L Carbon Dioxide 23 (21-32) mmol/L Anion Gap 9.0 (3-11) BUN 21 H (7-18) mg/dl Creatinine 0.77 0.81 (0.6-1.2) mg/dl Est Cr Clr Drug Dosing 42.0 39.9 ml/min Est GFR ( Amer) 79.9 75.2 Est GFR (Non-Af Amer) 68.9 64.8 BUN/Creatinine Ratio 27.3 H (10-20) Glucose 128 H (70-99) mg/dl Calcium 9.7 (8.5-10.1) mg/dl Phosphorus 4.0 (2.5-4.9) mg/dl Magnesium 2.0 (1.8-2.4) mg/dl Medications Administered Current Inpatient Medications Acetaminophen (Tylenol) 650 mg PO Q4H PRN PRN Reason: Pain or Fever Stop: 02/17/20 07:54 Last Admin: 01/19/20 02:34 Dose: 650 mg Documented by: Amoxicillin/Clavulanate Potassium (Augmentin 875mg) 1 tab PO BIDM [facility]; Protocol Citalopram Hydrobromide (Celexa) 20 mg PO HS [facility] Stop: 02/17/20 20:59 Last Admin: 01/25/20 21:25 Dose: 20 mg Documented by: Guaifenesin (Mucinex) 600 mg PO Q12 [facility] Stop: 02/21/20 20:59 Last Admin: 01/26/20 09:04 Dose: 600 mg Documented by: Haloperidol Lactate (Haldol) 2.5 mg IM Q2H PRN PRN Reason: Agitation Stop: 02/20/20 20:14 Last Admin: 01/22/20 00:06 Dose: 2.5 mg Documented by: Hydralazine HCl (Apresoline) 10 mg PO QID PRN PRN Reason: hypertension - see label note Stop: 02/21/20 12:59 Last Admin: 01/23/20 07:23 Dose: 10 mg Documented by: Doxycycline Hyclate 100 mg/ (Dextrose) 110 mls @ 50 mls/hr IV BID [facility] Stop: 01/29/20 09:59 Last Infusion: 01/26/20 11:49 Dose: Infused Documented by: Piperacillin Sod/Tazobactam (Sod 3.375 gm/ Dextrose) 115 mls @ 28.75 mls/hr IV Q8H [facility]; Protocol Stop: 01/27/20 13:59 Last Infusion: 01/26/20 18:46 Dose: Infused Documented by: Levetiracetam (Keppra) 250 mg PO [facility] Stop: 02/17/20 08:59 Last Admin: 01/26/20 09:04 Dose: 250 mg Documented by: Levothyroxine Sodium (Synthroid) 50 mcg PO DAILYBB [facility] Stop: 02/17/20 08:59 Last Admin: 01/26/20 08:03 Dose: 50 mcg Documented by: Lisinopril (Zestril) 5 mg PO QAM [facility] Stop: 02/17/20 08:59 Last Admin: 01/26/20 09:07 Dose: Not Given Documented by: Lorazepam (Ativan) 1 mg PO [facility] Stop: 02/25/20 20:59 Lorazepam (Ativan) 0.5 mg PO QAM PRN PRN Reason: Anxiety Stop: 02/25/20 15:04 Metoprolol Succinate (Toprol Xl) 100 mg PO [facility] Stop: 02/17/20 08:59 Last Admin: 01/26/20 09:07 Dose: Not Given Documented by: Miscellaneous Information (Consult) 1 ea N/A UD PRN PRN Reason: Consult Stop: 02/20/20 15:42 Morphine Sulfate (Morphine Sulfate) 1 mg IV Q4H PRN PRN Reason: Pain Stop: 02/01/20 07:54 Last Admin: 01/22/20 03:18 Dose: 1 mg Documented by: Nitroglycerin (Nitrostat) 0.4 mg UD PRN PRN Reason: Chest Pain Stop: 02/17/20 07:54 Ondansetron HCl (Zofran) 4 mg IV Q6H PRN PRN Reason: Nausea Stop: 02/17/20 07:54 Pantoprazole Sodium (Protonix) 40 mg PO DAILY [facility] Stop: 02/17/20 08:59 Last Admin: 01/26/20 09:04 Dose: 40 mg Documented by: Polyethylene Glycol (Miralax Powder Packet) 17 gm PO DAILY PRN PRN Reason: Constipation Stop: 02/17/20 07:54 Potassium Chloride (Klor-Con M20) [facility] Stop: 02/22/20 13:59 Last Admin: 01/26/20 09:04 Dose: 40 meq Documented by: Zinc Acetate/Diphenhydramine (Benadryl Extra Strength) 1 appln EXT QID PRN PRN Reason: itchy skin Stop: 02/23/20 01:30 Last Admin: 01/24/20 18:28 Dose: 1 appln Documented by: (1) Fracture of maxillary sinus Encounter type: initial encounter Fracture type: closed Qualified Code(s): S02.401A - Maxillary fracture, unspecified side, initial encounter for closed fracture (2) Fall Encounter type: initial encounter Qualified Code(s): W19.XXXA - Unspecified fall, initial encounter (3) Closed fracture of left orbit Encounter type: initial encounter Qualified Code(s): S02.85XA - Fracture of orbit, unspecified, initial encounter for closed fracture (4) Laceration of eyebrow, left Encounter type: initial encounter Qualified Code(s): S01.112A - Laceration without foreign body of left eyelid and periocular area, initial encounter
[2020-01-26] MEDS: CITALOPRAM 20 MG TAB PO SCH (21:45)
[2020-01-27] MEDS: PIPERACILLIN/TAZOBACTAM 3.375 GM in DEXTROSE 5% 100 ML IV SCH ×2 (06:05→13:36)
[2020-01-27] MEDS: LEVOTHYROXINE SODIUM 50 MCG TABLET PO SCH (06:06)
[2020-01-27 07:12] LABS: Hematocrit (blood only) 42.7 % (37-47); Hemoglobin 14.1 g/dL (12.0-16.0); Mean Corpuscular Hemoglobin 30.4 pg (25-34); Mean Platelet Volume 9.9 fL (7.4-10.4); Platelet Count 282 K/uL (130-400); RDW Coefficient of Variation 14.6 % (11.5-14.5); RDW Standard Deviation 49.3 fL (36.4-46.3); Red Blood Count 4.64 M/uL (4.2-5.4); White Blood Count 16.05 K/uL (4.8-10.8)
[2020-01-27 07:41] LABS: BUN Creatinine Ratio 31.1 (10-20); Calcium 9.6 mg/dl (8.5-10.1); Creatinine Clr Calc Pharmacy 37.6 ml/min; Est GFR (African American) 69.9; Est GFR (Non-African American) 60.3; Potassium 3.8 mmol/L (3.5-5.1)
[2020-01-27] MEDS ORDERED: LACTOBACILLUS ACIDOPHILUS (FLORANEX) TAB PO SCH (08:00)
[2020-01-27] MEDS: POTASSIUM CHLORIDE 20 MEQ TABCR PO SCH (08:53)
[2020-01-27] MEDS: PANTOprazole 40 MG TAB PO SCH (08:53)
[2020-01-27] MEDS: METOPROLOL SUCC 50MG EXT REL TAB PO SCH (08:54)
[2020-01-27] MEDS: lisinopriL 5 MG TAB PO SCH (08:54)
[2020-01-27] MEDS: LACTOBACILLUS ACIDOPHILUS 1 GM PACK PO SCH ×3 (08:55→17:48)
[2020-01-27] MEDS: guaiFENesin SUGAR FREE 200 MG/10 ML UDC PO SCH ×2 (08:55→21:47)
[2020-01-27] MEDS: DOXYCYCLINE HYCLATE 100 MG in DEXTROSE 5% 100 ML IV SCH (10:47)
--- NOTE | 2020-01-27 18:36 | Hospitalist Progress Note ---
Date of Service January 27, 2020 Assessment & Plan (1) Closed fracture of left orbit: Complex fracture left facial region Status post mechanical fall CT of the face showed inferior displacement of the fracture of the left inferior orbital margin and nondisplaced fracture lateral wall of left orbit Has periorbital ecchymosis and laceration over left upper area No visual abnormality, no subconjunctival hemorrhage Eye movement is minimally painful This was discussed with the oil and gas exploration technician and Dr. Tracy (prior hospitalist) and was advised that there is no imminent requirement for any ophthalmologic evaluation Periorbital bruising is much better and there is no visual impairment on examination If there is any problem she will need to see an oil and gas exploration technician down the line (2) Fracture of maxillary sinus: Fracture of the anterior left maxillary sinus wall with moderate posterior displacement of 3mm, and associated nasal bones noted following the fall Had significant pain there and swelling on admission Currently denies any pain, comfortable Orofacial surgery has been consulted - no surg. intervention planned Appreciate orofacial surgery input and recommendation - no surg. intervention planned No evidence of any infection, Normal white count, no fever or chills, will discontinue antibiotics (3) Fall: Likely mechanical secondary to ambulatory dysfunction PT OT recommended rehab/SNF Awaiting placement (4) Laceration of eyebrow, left: As above Has been getting better (5) Ambulatory dysfunction: Multifactorial osteoarthritis, deteriorating general health and is complicated by dementia PT and OT evaluation before discharge (6) Hypertension: BP noted to be well controlled: Tachycardia (7) Hypothyroid: Continue supplement (8) Depression: (9) Dementia: Pt gets confused and agitated at times (usually at night time), often able to be re-oriented during the day DVT prophylaxis SCDs CODE STATUS Full Dispo: plan to d/c to [facility] when medically stable Admission and Anticipated Discharge Date Admission Date: January 20, 2020 Anticipated date of discharge: 01/20/20 Subjective Baseline advanced dementia, sitting up on chair, Smiling, saying yes to everything Vitals been stable, no fever or chills, no sign of distress Review of Systems Review of Systems: Unobtainable due to cognitive status (Advanced dementia) Physical Exam Constitutional: + ill appearing; no acute distress Eyes: + eyelid abnormality (Laceration noted over left eyelid/healing) Left supra orbital laceration noted Respiratory: normal respiratory effort, lungs clear to auscultation Cardiovascular: RRR, no murmur, no edema Gastrointestinal (Abdomen): normal bowel sounds, soft, nontender, no hepatosplenomegaly Neurologic: moves all extremities; no focal motor deficits Speech / Cognition: normal speech Motor/Sensory: no tremor Psychiatric: Patient is awake/alert, baseline advanced dementia Results & Data ([facility]) Vital Signs (Past 12 Hours) Vital Signs Temp Pulse Resp BP Pulse Ox 01/27/20 15:11 36.2 C L 81 16 104/64 95 01/27/20 07:17 36.5 C 91 H 16 134/69 98 (1) Fracture of maxillary sinus Encounter type: initial encounter Fracture type: closed Qualified Code(s): S02.401A - Maxillary fracture, unspecified side, initial encounter for closed fracture (2) Fall Encounter type: initial encounter Qualified Code(s): W19.XXXA - Unspecified fall, initial encounter (3) Closed fracture of left orbit Encounter type: initial encounter Qualified Code(s): S02.85XA - Fracture of orbit, unspecified, initial encounter for closed fracture (4) Laceration of eyebrow, left Encounter type: initial encounter Qualified Code(s): S01.112A - Laceration without foreign body of left eyelid and periocular area, initial encounter
[2020-01-27] MEDS ORDERED: LORazepam 0.5 MG/1 ML VIAL IV SCH (20:36)
[2020-01-27] MEDS: LORazepam 1 MG TAB PO SCH (21:47)
[2020-01-27] MEDS: CITALOPRAM 20 MG TAB PO SCH (21:47)
[2020-01-28] MEDS: LEVOTHYROXINE SODIUM 50 MCG TABLET PO SCH (06:41)
[2020-01-28 08:09] LABS: Hematocrit (blood only) 42.5 % (37-47); Hemoglobin 13.9 g/dL (12.0-16.0); Mean Corpuscular Hemoglobin 30.3 pg (25-34); Mean Corpuscular Hgb Conc 32.7 g/dL (32-36); Mean Corpuscular Volume 92.6 fL (80-100); Mean Platelet Volume 10.2 fL (7.4-10.4); Platelet Count 306 K/uL (130-400); RDW Coefficient of Variation 14.4 % (11.5-14.5); RDW Standard Deviation 48.4 fL (36.4-46.3); Red Blood Count 4.59 M/uL (4.2-5.4); White Blood Count 17.54 K/uL (4.8-10.8)
[2020-01-28 08:12] LABS: BUN Creatinine Ratio 35.7 (10-20); Calcium 9.8 mg/dl (8.5-10.1); Creatinine Clr Calc Pharmacy 43.7 ml/min; Est GFR (African American) 83.8; Est GFR (Non-African American) 72.3
[2020-01-28] MEDS: LACTOBACILLUS ACIDOPHILUS 1 GM PACK PO SCH ×3 (09:10→17:38)
[2020-01-28] MEDS: POTASSIUM CHLORIDE 20 MEQ TABCR PO SCH (09:11)
[2020-01-28] MEDS: PANTOprazole 40 MG TAB PO SCH (09:11)
[2020-01-28] MEDS: lisinopriL 5 MG TAB PO SCH (09:12)
[2020-01-28] MEDS: METOPROLOL SUCC 50MG EXT REL TAB PO SCH (09:12)
[2020-01-28] MEDS: guaiFENesin SUGAR FREE 200 MG/10 ML UDC PO SCH (09:25)
[2020-01-28] MEDS ORDERED: QUETIAPINE FUMARATE 25 MG TABLET PO STA (16:31)
--- NOTE | 2020-01-28 17:53 | Hospitalist Progress Note ---
Date of Service January 27, 2020 Assessment & Plan (1) Closed fracture of left orbit: Complex fracture left facial region Status post mechanical fall CT of the face showed inferior displacement of the fracture of the left inferior orbital margin and nondisplaced fracture lateral wall of left orbit Has periorbital ecchymosis and laceration over left upper area No visual abnormality, no subconjunctival hemorrhage Eye movement is minimally painful This was discussed with the gas engine operator compressors and Dr. Tracy (prior hospitalist) and was advised that there is no imminent requirement for any ophthalmologic evaluation Periorbital bruising is much better and there is no visual impairment on examination If there is any problem she will need to see an gas engine operator compressors down the line (2) Fracture of maxillary sinus: Fracture of the anterior left maxillary sinus wall with moderate posterior displacement of 3mm, and associated nasal bones noted following the fall Had significant pain there and swelling on admission Currently denies any pain, comfortable Orofacial surgery has been consulted - no surg. intervention planned Appreciate orofacial surgery input and recommendation - no surg. intervention planned No evidence of any infection, Normal white count, no fever or chills, will discontinue antibiotics (3) Fall: Likely mechanical secondary to ambulatory dysfunction PT OT recommended rehab/SNF Awaiting placement (4) Laceration of eyebrow, left: As above Has been getting better (5) Ambulatory dysfunction: Multifactorial osteoarthritis, deteriorating general health and is complicated by dementia PT and OT evaluation before discharge (6) Hypertension: BP noted to be well controlled: Tachycardia (7) Hypothyroid: Continue supplement (8) Depression: (9) Dementia: Pt gets confused and agitated at times (usually at night time), often able to be re-oriented during the day DVT prophylaxis SCDs CODE STATUS Full Dispo: plan to d/c to [facility] when medically stable Admission and Anticipated Discharge Date Admission Date: January 20, 2020 Anticipated date of discharge: 01/20/20 Subjective Baseline advanced dementia, sitting up on chair, Smiling, saying yes to everything Vitals been stable, no fever or chills, no sign of distress Physical Exam Constitutional: + ill appearing; no acute distress Eyes: + eyelid abnormality (Laceration noted over left eyelid/healing) Respiratory: normal respiratory effort, lungs clear to auscultation Cardiovascular: RRR, no murmur, no edema Gastrointestinal (Abdomen): normal bowel sounds, soft, nontender, no hepatosplenomegaly Neurologic: moves all extremities; no focal motor deficits Speech / Cognition: normal speech Motor/Sensory: no tremor Results & Data ([facility]) Vital Signs (Past 12 Hours) Vital Signs Temp Pulse Resp BP Pulse Ox 01/27/20 15:11 36.2 C L 81 16 104/64 95 (1) Closed fracture of left orbit Encounter type: initial encounter Qualified Code(s): S02.85XA - Fracture of orbit, unspecified, initial encounter for closed fracture (2) Fracture of maxillary sinus Encounter type: initial encounter Fracture type: closed Qualified Code(s): S02.401A - Maxillary fracture, unspecified side, initial encounter for closed fracture (3) Fall Encounter type: initial encounter Qualified Code(s): W19.XXXA - Unspecified fall, initial encounter (4) Laceration of eyebrow, left Encounter type: initial encounter Qualified Code(s): S01.112A - Laceration without foreign body of left eyelid and periocular area, initial encounter
--- NOTE | 2020-01-28 17:54 | Hospitalist Progress Note ---
Date of Service January 28, 2020 Assessment & Plan (1) Closed fracture of left orbit: Complex fracture left facial region Status post mechanical fall CT of the face showed inferior displacement of the fracture of the left inferior orbital margin and nondisplaced fracture lateral wall of left orbit Has periorbital ecchymosis and laceration over left upper area No visual abnormality, no subconjunctival hemorrhage Eye movement is minimally painful This was discussed with the gaming cage cashier and Dr. Tracy (prior hospitalist) and was advised that there is no imminent requirement for any ophthalmologic evaluation Periorbital bruising is much better and there is no visual impairment on examination If there is any problem she will need to see an gaming cage cashier down the line (2) Fracture of maxillary sinus: Fracture of the anterior left maxillary sinus wall with moderate posterior displacement of 3mm, and associated nasal bones noted following the fall Had significant pain there and swelling on admission Currently denies any pain, comfortable Orofacial surgery has been consulted - no surg. intervention planned Appreciate orofacial surgery input and recommendation - no surg. intervention planned No evidence of any infection, (3) Fall: Likely mechanical secondary to ambulatory dysfunction PM dose of Ativan D/dante noted to cause high fall risk in elderly and dementia patient seroquel HS ordered for sleep PT OT recommended rehab/SNF pt will return back to [facility] today (4) Laceration of eyebrow, left: healing well (5) Ambulatory dysfunction: Multifactorial osteoarthritis, deteriorating general health and is complicated by dementia pt is dischaged back to [facility] (6) Hypertension: BP noted to be well controlled: (7) Hypothyroid: Continue supplement (8) Depression: (9) Dementia: Pt gets confused and agitated at times (usually at night time), often able to be re-oriented during the day DVT prophylaxis SCDs CODE STATUS Full Dispo: stable to be discharged to [facility] Admission and Anticipated Discharge Date Admission Date: January 20, 2020 Anticipated date of discharge: 01/20/20 Subjective Baseline advanced dementia, offers no complains stable to be discharged to [facility] today Physical Exam Constitutional: + ill appearing; no acute distress Eyes: + eyelid abnormality (Laceration noted over left eyelid/healing) Respiratory: normal respiratory effort, lungs clear to auscultation Cardiovascular: RRR, no murmur, no edema Gastrointestinal (Abdomen): normal bowel sounds, soft, nontender, no hepatosplenomegaly Neurologic: moves all extremities; no focal motor deficits Speech / Cognition: normal speech Motor/Sensory: no tremor Results & Data ([facility]) Vital Signs (Past 12 Hours) Vital Signs Temp Pulse Pulse Resp BP BP Pulse Ox 01/28/20 16:34 36.6 C 82 81 16 121/70 129/75 97 01/28/20 15:13 36.6 C 81 16 121/70 97 01/28/20 09:06 81 125/64 01/28/20 06:57 36.9 C 81 17 132/71 95 (1) Fracture of maxillary sinus Encounter type: initial encounter Fracture type: closed Qualified Code(s): S02.401A - Maxillary fracture, unspecified side, initial encounter for closed fracture (2) Fall Encounter type: initial encounter Qualified Code(s): W19.XXXA - Unspecified fall, initial encounter (3) Closed fracture of left orbit Encounter type: initial encounter Qualified Code(s): S02.85XA - Fracture of orbit, unspecified, initial encounter for closed fracture (4) Laceration of eyebrow, left Encounter type: initial encounter Qualified Code(s): S01.112A - Laceration without foreign body of left eyelid and periocular area, initial encounter
--- NOTE | 2020-01-29 00:03 | Discharge Summary ---
Date of Service January 29, 2020 Principal Diagnosis FALL /FACIAL BONE FRACTURE Discharge Exam Constitutional + ill appearing; no acute distress Eyes + eyelid abnormality (Laceration noted over left eyelid/healing) Respiratory normal respiratory effort, lungs clear to auscultation Cardiovascular RRR, no murmur, no edema Gastrointestinal (Abdomen) normal bowel sounds, soft, nontender, no hepatosplenomegaly Neurologic moves all extremities; no focal motor deficits Speech / Cognition: normal speech Motor/Sensory: no tremor Discharge Data Allergies Allergy/AdvReac Type Severity Reaction Status Date / Time oxycodone Allergy Mild RED Verified 01/18/20 05:25 FLUSHED FACE tramadol AdvReac Mild GI UPSET Verified 01/18/20 05:25 Consultations 01/18/20 05:47 ED Decision to Admit Stat 01/18/20 07:55 Consult Case Management - Discharge Planning Routine 01/18/20 08:00 Consult Oromaxillofacial Surgery Routine 01/22/20 09:32 Consult Infectious Diseases Routine Ordered Studies 01/18/20 03:07 CT cervical spine wo con Urgent CT facial bones wo con Urgent CT head/brain wo con Urgent 01/20/20 06:17 CT head/brain wo con Urgent 01/22/20 09:33 CT angio chest PE protocol Urgent Hospital Course (1) Closed fracture of left orbit: Complex fracture left facial region Status post mechanical fall CT of the face showed inferior displacement of the fracture of the left inferior orbital margin and nondisplaced fracture lateral wall of left orbit Has periorbital ecchymosis and laceration over left upper area No visual abnormality, no subconjunctival hemorrhage Eye movement is minimally painful This was discussed with the manager summer and Dr. Tracy (prior hospitalist) and was advised that there is no imminent requirement for any ophthalmologic evaluation Periorbital bruising is much better and there is no visual impairment on examination If there is any problem she will need to see an manager summer down the line (2) Fracture of maxillary sinus: Fracture of the anterior left maxillary sinus wall with moderate posterior displacement of 3mm, and associated nasal bones noted following the fall Had significant pain there and swelling on admission Currently denies any pain, comfortable Orofacial surgery has been consulted - no surg. intervention planned Appreciate orofacial surgery input and recommendation - no surg. intervention planned No evidence of any infection, (3) Fall: Likely mechanical secondary to ambulatory dysfunction PM dose of Ativan D/dante noted to cause high fall risk in elderly and dementia patient seroquel HS ordered for sleep and behavioral issues /sundowning , increased agitation at evening PT OT recommended rehab/SNF pt will return back to [facility] today (4) Laceration of eyebrow, left: healing well (5) Ambulatory dysfunction: Multifactorial osteoarthritis, deteriorating general health and is complicated by dementia pt is dischaged back to [facility] (6) Hypertension: BP noted to be well controlled: (7) Hypothyroid: Continue supplement (8) Depression: (9) Dementia: Pt gets confused and agitated at times (usually at night time), often able to be re-oriented during the day DVT prophylaxis SCDs CODE STATUS Full Dispo: stable to be discharged to [facility] Total Time Total Time Spent Total Time Spent (In Minutes): 35 mins Discharge Plan Discharge Items Patient Disposition: Trans Resident Long-Term Care Reason For Visit: FALL Discharge Diagnosis: Fall/facial bone fracture Activity: As commented below Activity Comment: As tolerated/observe fall precaution Non-emergency contact: Primary Care Provider Call non-emergency contact if: you have any medication questions Follow-up/Referrals: William Rivera MD [Primary Care Provider] - Diet: Carb Consistent or DM2 Diet Texture: Dental soft (bite-sized) Addtl Attending Provider Instructions: Ativan/lorazepam 1 mg p.o. at night discontinued, high risk for confusion/fall Started on Seroquel 25 mg 1 tablet at night Hospital follow-up with family physician in 1 week Pending Studies at Discharge: No Stand-Alone Forms: My [facility] Skilled Items Patient informed of condition?: Yes DNR: Yes Discharge Level of Care: Other Communicable Disease: No Discharge Prognosis: Stable Lines: None Urinary Catheter: No Medications and DC Order Prescriptions: New quetiapine [Seroquel] 25 mg tablet 25 mg PO HS Qty: 30 RF: 0 Continued citalopram 20 mg tablet 20 mg PO HS RF: 0 levetiracetam 250 mg tablet 250 mg PO AMHS RF: 0 metoprolol succinate 100 mg tablet extended release 24 hr 100 mg PO QAM RF: 0 levothyroxine 50 mcg tablet 50 mcg PO QAM RF: 0 lisinopril 5 mg tablet 5 mg PO QAM RF: 0 Discontinued aspirin 81 mg tablet,delayed release (DR/EC) 81 mg PO QAM RF: 0 lorazepam 1 mg tablet 1 mg PO HS RF: 0 Discharge Orders: Discharge Order (Routine); Ordered 01/28/20 Ordered By: Dianna Rausch Admission Data Admit Date/Time: 01/20/20 11:17 Attending Provider: Dianna Rausch Admit Provider: Josiah Curtis Primary Care Provider: William Rivera Other Providers: Elizabeth Tyler ; Eber Tracy ; Josiah Curtis ; Vinny Ba Jennifer Other Interventions: Discharge Summary Assessment (RN) Last Done: 01/28/20 16:34 DC Date/Time DO NOT enter until pt leaves facility: 01/28/20 17:52
== END 2020-01-28 17:52 | DRG 86 ==
LOC: 2S 03:01 → ED 03:01 → SUATTDRO 06:37 → 2S 07:04 → SUATTDRO 01-20 11:17 → 2S 01-21 21:55 → 2N 01-24 06:36 → 3N 01-25 22:51